=== PATIENT | female | born 1940 | race Caucasian/White ===

== ENCOUNTER → 2017-10-25 | Outpatient (CLI) | payer MEDICARE, OTHER ==
[2017-10-25 08:14] LABS: MEAN PLATELET VOLUME 8.4 FL (7.4-10.4); RED BLOOD COUNT 4.56 10^6/uL (4.35-5.85); RED CELL DISTRIBUTION WIDTH 12.9 % (10.0-14.5)
[2017-10-25 08:51] LABS: ALANINE AMINOTRANSFERASE 13 U/L (0-55); ALBUMIN 4.3 GM/DL (3.2-4.5); ALKALINE PHOSPHATASE 80 U/L (40-136); BILIRUBIN,TOTAL 0.7 MG/DL (0.1-1.0); BUN/CREATININE RATIO 19; CALCIUM 9.3 MG/DL (8.5-10.1); CARBON DIOXIDE 26 MMOL/L (21-32); CHLORIDE 103 MMOL/L (98-107); GFR ESTIMATED > 60; GLUCOSE 85 MG/DL (70-105); POTASSIUM 3.5 MMOL/L (3.6-5.0); SODIUM 139 MMOL/L (135-145); TOTAL PROTEIN 6.7 GM/DL (6.4-8.2)
--- NOTE | 2017-10-25 11:43 | Diagnostic Imaging Report ---
INDICATION: Osteoporosis. TECHNIQUE: Bone mineral analysis of the bilateral hips was performed. The lumbar spine could not be evaluated due to prior lumbar spine fusion. FINDINGS: The bone mineral density of the left femoral neck is 0.907 with a T score of -0.9. The bone mineral density of the right femoral neck is 0.884 with a T score of -1.1. IMPRESSION: Normal bone mineral density of the left femoral neck with osteopenia of the right femoral neck. Dictated by: Dictated on workstation # [id number]
== END ==
LOC: RAD 07:35
PROVIDERS: ATTEND Physician Assistant
DX: M81.0 Age-related osteoporosis without current pathological fracture (principal); E55.9 Vitamin D deficiency, unspecified; M85.88 Other specified disorders of bone density and structure, other site; R53.83 Other fatigue
CPT/HCPCS: 36415; 77080; 80053; 82306; 83970; 84443; 85027

== ENCOUNTER → 2020-06-03 | Outpatient (CLI) | payer MEDICARE, OTHER ==
[~2020-06-03] MED LIST: ACET-2650 PO; CATHETER FLUSH 10 ML SYR IV PRN; FEXO180T84 PO; HOLD METFORMIN - RECEIVED CONTRAST 20 ML VIAL IV SCH; IOHEXOL 350 MG/ML 100 ML (OMNIPAQUE 350) VIAL IV ONE; LEVO-130 PO; LOSA1TAB26 PO; MAGN400T39 PO; MELO15TA39 PO; NS 100 ML (IVPB) BAG IV ONE; ONDA-105 PO; POTA20TA15 PO; SOLI10TA7 PO; SULF1TAB35 PO
[2020-06-03 12:50] LABS: CHLORIDE 96 MMOL/L (98-107); POTASSIUM 3.5 MMOL/L (3.6-5.0); SODIUM 131 MMOL/L (135-145)
[2020-06-03 12:51] LABS: CALCIUM 9.6 MG/DL (8.5-10.1)
[2020-06-03 12:52] LABS: GLUCOSE 107 MG/DL (70-105)
[2020-06-03 12:54] LABS: CARBON DIOXIDE 24 MMOL/L (21-32)
[2020-06-03 12:56] LABS: CREATININE SERUM 0.75 MG/DL (0.60-1.30); GFR ESTIMATED > 60
[2020-06-03 12:57] LABS: BUN/CREATININE RATIO 12
--- NOTE | 2020-06-03 13:54 | Diagnostic Imaging Report ---
EXAMINATION: CT Abdomen Pelvis with and without intravenous contrast. TECHNIQUE: Precontrast acquisitions were acquired through the abdomen and pelvis. Multiple contiguous axial images were obtained through the abdomen and pelvis after the administration of intravenous contrast. All CT scans use one or more of the following dose optimizing techniques: automated exposure control, MA and/or KvP adjustment based on a patient size and exam type, or iterative reconstruction. HISTORY: Right lower quadrant and pelvic pain, hematuria. COMPARISON: None available. FINDINGS: Lung bases: Bibasilar dependent atelectasis. Solid organs: The liver is normal without focal lesion. There is no biliary ductal dilation. Gallbladder is normal. Pancreas is normal. Spleen is normal. Adrenal glands are normal. The kidneys are normal without visualized calculus or hydronephrosis. Normal symmetric nephrograms. The ureters are patent to the ureterovesicular junctions without filling defect, dilatation, or stricture. Bowel: The stomach and small bowel are normal without obstruction. There are a few scattered colonic diverticula. No findings of acute appendicitis. Peritoneum: There is no intraperitoneal free fluid or free air. No suspicious lymphadenopathy. Vasculature: Calcification of the aorta without aneurysm. Musculoskeletal: Degenerative changes of the spine without suspicious osseous lesion or compression fracture. Asymmetric soft tissue tissue nodularity within the left breast. Pelvis: The uterus is surgically absent. No adnexal mass. The urinary bladder is normal. IMPRESSION: 1. No visualized renal or ureteral calculus. No hydronephrosis. 2. No other acute abnormality in the abdomen or pelvis. 3. Asymmetric soft tissue nodularity within the visualized inferior left breast. This could represent partially visualized normal breast tissue, however recommend correlation with mammography. 4. Colonic diverticulosis without findings of diverticulitis. Dictated by: Dictated on workstation # [id number]
== END ==
LOC: RAD 12:07
PROVIDERS: ATTEND Nurse Practitioner Family
DX: K57.30 Diverticulosis of large intestine without perforation or abscess without bleeding (principal); C73 Malignant neoplasm of thyroid gland; N20.0 Calculus of kidney; M13.80 Other specified arthritis, unspecified site; I10 Essential (primary) hypertension; R31.29 Other microscopic hematuria
CPT/HCPCS: 36415; 74178; 80048

== ENCOUNTER 2020-06-07 04:11 | Inpatient (IN) | payer MEDICARE, OTHER ==
[~2020-06-07] VITALS: Ht 167.7 cm; Wt 90.1 kg
[2020-06-07] MEDS ORDERED: KETOROLAC 30 MG/ML VIAL IVP STA (04:37)
[2020-06-07] MEDS ORDERED: LACTATED RINGERS 1,000 ML IV ONE (04:45)
[2020-06-07 04:47] LABS: BASOPHILS % (AUTO) 0 % (0-10); EOSINOPHILS % (AUTO) 0 % (0-10); HEMATOCRIT 37 % (35-52); HEMOGLOBIN 12.9 g/dL (11.5-16.0); LYMPHOCYTES # (AUTO) 1.2 10^3/uL (1.0-4.0); LYMPHOCYTES % (AUTO) 11 % (12-44); MEAN CORPUSCULAR HEMOGLOBIN 30 pg (25-34); MEAN CORPUSCULAR HGB CONC 35 g/dL (32-36); MEAN CORPUSCULAR VOLUME 88 fL (80-99); MEAN PLATELET VOLUME 8.3 fL (9.0-12.2); MONOCYTES # (AUTO) 0.8 10^3/uL (0.0-1.0); MONOCYTES % (AUTO) 8 % (0-12); NEUTROPHILS # (AUTO) 8.8 10^3/uL (1.8-7.8); NEUTROPHILS % (AUTO) 80 % (42-75); PLATELET COUNT 305 10^3/uL (130-400)
[2020-06-07 04:50] LABS: BILIRUBIN,URINE NEGATIVE (NEGATIVE); CLARITY,URINE SL CLOUDY; COLOR,URINE YELLOW; GLUCOSE, URINE (UA) NEGATIVE (NEGATIVE); KETONES,URINE NEGATIVE (NEGATIVE); LEUKOCYTE ESTERASE ,URINE NEGATIVE (NEGATIVE); NITRITE,URINE NEGATIVE (NEGATIVE); PROTEIN,URINE NEGATIVE (NEGATIVE)
[2020-06-07 04:53] LABS: POTASSIUM 4.1 MMOL/L (3.6-5.0)
[2020-06-07 04:54] LABS: CALCIUM 8.9 MG/DL (8.5-10.1)
[2020-06-07 04:55] LABS: TOTAL PROTEIN 6.6 GM/DL (6.4-8.2)
--- NOTE | 2020-06-07 04:55 | ED Abdominal Pain ---
General Chief Complaint: General Problems/Pain Stated Complaint: VOMITING;LOWER R ABD PAIN;DIFFICULTY URINATING Source of Information: Patient (LIMITED HISTORIAN ABOUT HER MEDICATIONS AND PAST MEDICAL HISTORY) History of Present Illness Date Seen by Provider: Jun 07, 2020 Time Seen by Provider: 04:27 Initial Comments PT ARRIVES VIA POV FROM HOME C/O SEVERE PAIN IN RLQ/RIGHT GROIN AREA SINCE 05/28/20 PAIN IS CONSTANT AND WORSE WITH MOVEMENTS AND WALKING NO RADIATION OF PAIN C/O CONSTIPATION--HAS NOT HAD A BM IN 4 DAYS, NORMALLY HAS DIARRHEA. DENIES ANY URINARY SYMPTOMS TO ME--NO PAIN ON URINATION, NO URGENCY, NO FREQUENCY, NO SMALL AMOUNTS, NO HEMATURIA DENIES FEVER WAS SEEN AT [facility] ON 06/03/20 FOR THIS PROBLEM, AND HAD OUTPATIENT CT SCAN OF ABDOMEN AND PELVIS, WHICH WAS NEGATIVE FOR ACUTE PROCESS WAS GIVEN RX FOR HYDROCODONE--RAN OUT YESTERDAY, HAS TAKEN TYLENOL 3 DOSES--LAST DOSE WAS AT 0200 THIS AM ALSO GIVEN RX FOR ZOFRAN AND FOR KEFLEX STATES SHE HAD NAUSEA AND VOMITING WITH KEFLEX, AND IT WAS SWITCHED TO BACTRIM ON 06/05/19 AND SHE HAS NOT HAD ANY NAUSEA OR VOMITING SINCE THEN DENIES HISTORY OF SIMILAR PT HAS HAD APPENDECTOMY, X 2 AND EMERGENT HYSTERECTOMY IN 1959'S SHORTLY AFTER DELIVERY DUE TO BLEEDING AND "CODE BLUE TWICE" "BECAUSE THEY COULDN'T GET THE BLEEDING TO STOP" PCP: DR. CHIQUITA VINES, GREG SHRESTHA Allergies and Home Medications Allergies Coded Allergies: cephalexin (Verified Allergy, Mild, Vomiting, 06/07/20) Home Medications Acetaminophen 650 Mg Tablet.er, 650-1,300 MG PO Q8H PRN for PAIN-MILD (1-4), (Reported) Fexofenadine HCl 180 Mg Tablet, 180 MG PO DAILY, (Reported) Levothyroxine Sodium 100 Mcg Tablet, 100 MCG PO DAILY, (Reported) Losartan/Hydrochlorothiazide 1 Each Tablet, 1 EA PO DAILY, (Reported) Magnesium Oxide 400 Mg Tablet, 400 MG PO 1200, (Reported) Meloxicam 15 Mg Tablet, 15 MG PO DAILY, (Reported) Ondansetron HCl 4 Mg Tablet, 4 MG PO Q6 -8H PRN for NAUSEA/VOMITING-1ST LINE, (Reported) Potassium Chloride 20 Meq Tab.er.prt, 20 MEQ PO DAILY, (Reported) Solifenacin Succinate 10 Mg Tablet, 10 MG PO DAILY, (Reported) Sulfamethoxazole/Trimethoprim 1 Each Tablet, 1 EA PO BID, (Reported) FILLED 06-05-2019 #14/7 DAY SUPPLY Patient Home Medication List Home Medication List Reviewed: Yes Review of Systems Review of Systems Constitutional: no symptoms reported; No chills, No diaphoresis, No dizziness, No fever Respiratory: No Symptoms Reported Cardiovascular: No Symptoms Reported Gastrointestinal: See HPI, Abdominal Pain, Constipated Genitourinary: No Symptoms Reported Musculoskeletal: no symptoms reported; No back pain Skin: no symptoms reported Psychiatric/Neurological: No Symptoms Reported Endocrine: No Symptoms Reported Hematologic/Lymphatic: No Symptoms Reported Past Trwpvxt-Pzoshq-Hyoefz Hx Past Med/Social Hx: Reviewed and Corrections made Patient Social History Alcohol Use: Denies Use Recreational Drug Use: No Smoking Status: Never a Smoker Past Medical History Surgeries: Yes (FOOT SURGERY;LUMBAR SPINE SURGERY;EMERGENCY HYST AFTER CHILDBIRTH) Appendectomy, Hysterectomy, Orthopedic, Thyroidectomy, Tonsillectomy Respiratory: No Cardiac: Yes Hypertension Neurological: No HOSPICE LIAISON History: Hysterectomy, Menopausal Genitourinary: No Gastrointestinal: Yes Chronic Diarrhea Musculoskeletal: Yes (LUMBAR SPINE SURGERY; FOOT SURGERY) Chronic Back Pain Endocrine: Yes (THYROIDECTOMY) Hypothyroidsim HEENT: No Cancer: No Psychosocial: No Integumentary: No Blood Disorders: No Physical Exam Vital Signs Vital Signs - First Documented 06/07/20 04:25 Temp 37.0 Pulse 75 Resp 18 B/P (MAP) 202/91 (128) Capillary Refill : Height/Weight/BMI Height: '" Weight: lbs. oz. kg; BMI Method: General Appearance: WD/WN, no apparent distress, obese Respiratory: normal breath sounds, no respiratory distress, no accessory muscle use Cardiovascular: regular rate, rhythm, no murmur Gastrointestinal: normal bowel sounds, soft, no organomegaly, no pulsatile mass; No distended, No guarding, No rebound; tenderness (TENDERNESS TO RLQ AND RIGHT GROIN); No hernia, No mass Extremities: normal inspection, normal capillary refill Back: no CVA tenderness, no vertebral tenderness Neurologic/Psychiatric: copyright clerk II-XII nml as tested, no motor/sensory deficits, alert, oriented x 3, other (ANXIOUS) Skin: normal color, warm/dry; No rash Progress/Results/Core Measures Results/Orders Lab Results Laboratory Tests Test 06/07/20 04:31 06/07/20 04:35 Range/Units White Blood Count 11.0 4.3-11.0 10^3/uL Red Blood Count 4.24 3.80-5.11 10^6/uL Hemoglobin 12.9 11.5-16.0 g/dL Hematocrit 37 35-52 % Mean Corpuscular Volume 88 80-99 fL Mean Corpuscular Hemoglobin 30 25-34 pg Mean Corpuscular Hemoglobin Concent 35 32-36 g/dL Red Cell Distribution Width 12.3 10.0-14.5 % Platelet Count 305 130-400 10^3/uL Mean Platelet Volume 8.3 L 9.0-12.2 fL Immature Granulocyte % (Auto) 0 % Neutrophils (%) (Auto) 80 H 42-75 % Lymphocytes (%) (Auto) 11 L 12-44 % Monocytes (%) (Auto) 8 0-12 % Eosinophils (%) (Auto) 0 0-10 % Basophils (%) (Auto) 0 0-10 % Neutrophils # (Auto) 8.8 H 1.8-7.8 10^3/uL Lymphocytes # (Auto) 1.2 1.0-4.0 10^3/uL Monocytes # (Auto) 0.8 0.0-1.0 10^3/uL Eosinophils # (Auto) 0.0 0.0-0.3 10^3/uL Basophils # (Auto) 0.0 0.0-0.1 10^3/uL Immature Granulocyte # (Auto) 0.0 0.0-0.1 10^3/uL Sodium Level 125 *L 135-145 MMOL/L Potassium Level 4.1 3.6-5.0 MMOL/L Chloride Level 92 L 98-107 MMOL/L Carbon Dioxide Level 22 21-32 MMOL/L Anion Gap 11 5-14 MMOL/L Blood Urea Nitrogen 7 7-18 MG/DL Creatinine 0.96 0.60-1.30 MG/DL Estimat Glomerular Filtration Rate 56 BUN/Creatinine Ratio 7 Glucose Level 109 H 70-105 MG/DL Calcium Level 8.9 8.5-10.1 MG/DL Corrected Calcium 8.9 8.5-10.1 MG/DL Total Bilirubin 0.5 0.1-1.0 MG/DL Aspartate Amino Transf (AST/SGOT) 19 5-34 U/L Alanine Aminotransferase (ALT/SGPT) 17 0-55 U/L Alkaline Phosphatase 79 40-136 U/L Total Protein 6.6 6.4-8.2 GM/DL Albumin 4.0 3.2-4.5 GM/DL Amylase Level 33 25-125 U/L Lipase 27 8-78 U/L Urine Color YELLOW Urine Clarity SL CLOUDY Urine pH 7.0 5-9 Urine Specific [place] 1.010 L 1.016-1.022 Urine Protein NEGATIVE NEGATIVE Urine Glucose (UA) NEGATIVE NEGATIVE Urine Ketones NEGATIVE NEGATIVE Urine Nitrite NEGATIVE NEGATIVE Urine Bilirubin NEGATIVE NEGATIVE Urine Urobilinogen 0.2 < = 1.0 MG/DL Urine Leukocyte Esterase NEGATIVE NEGATIVE Urine RBC (Auto) NEGATIVE NEGATIVE Urine RBC NONE /HPF Urine WBC NONE /HPF Urine Squamous Epithelial Cells 0-2 /HPF Urine Crystals NONE /LPF Urine Bacteria NEGATIVE /HPF Urine Casts NONE /LPF Urine Mucus NEGATIVE /LPF Urine Culture Indicated NO My Orders Orders - SHRUTHI ADAMS DO Ed Iv/Invasive Line Start (06/07/20 04:37) Monitor-Rhythm Ecg Trace Only (06/07/20 04:37) Amylase (06/07/20 04:37) Cbc With Automated Diff (06/07/20 04:37) Comprehensive Metabolic Panel (06/07/20 04:37) Lipase (06/07/20 04:37) Ua Culture If Indicated (06/07/20 04:37) Ed Iv/Invasive Line Start (06/07/20 04:37) Lactated Ringers (Lr 1000 Ml Iv Solution (06/07/20 04:45) Ketorolac Injection (Toradol Injection) (06/07/20 04:37) Ct Abd/Pelvis Wo(Kidney Stone) (06/07/20 05:08) Abdomen, Flat & Upright/Decub (06/07/20 05:08) Ed Iv/Invasive Line Start (06/07/20 05:09) Ns Iv 1000 Ml (Sodium Chloride 0.9%) (06/07/20 05:15) Ciprofloxacin Iv 400mg/200ml (Cipro Iv S (06/07/20 06:15) Metronidazole 500mg/100ml Ivpb (Flagyl 5 (06/07/20 06:15) Medications Given in ED Vital Signs/I&O 06/07/20 04:25 Temp 37.0 Pulse 75 Resp 18 B/P (MAP) 202/91 (128) Progress Progress Note : Progress Note GIVEN IV FLUIDS AND TORADOL WITH IMPROVEMENT IN PAIN BP DOWN PAIN DECREASED. Diagnostic Imaging Comments ABDOMEN XRAYS--NON-SPECIFIC BOWEL GAS, CONSTIPATION--PENDING RADIOLOGIST REVIEW CT ABDOMEN/PELVIS--FAT STRANDING AROUND COLON, WITH DIVERTICULAR DISEASE--POSSIBLE CECAL DIVERTICULITIS, MODERATE STOOL IN RIGHT COLON, AND MILDLY IMPACTED STOOL THROUGHOUT REMAINING COLON. NO URETERAL STONES OR HYDRONEPHROSIS--PER [facility] VIA FAX AT 0601 Reviewed: Reviewed by Me Departure Communication (Admissions) [id number]--SPOKE WITH DR. MONTESINOS, HOSPITALIST, ACCEPTS PT FOR ADMIT Impression Primary Impression: RLQ abdominal pain Additional Impressions: INFLAMMATION OF CECUM Hyponatremia Disposition: ADMITTED INPATIENT Condition: Improved Admissions Decision to Admit Reason: Admit from ER (General) Decision to Admit/Date: Jun 07, 2020 Time/Decision to Admit Time: 06:00 Departure-Patient Inst. Referrals: NO,LOCAL PHYSICIAN (PCP/Family) Primary Care Physician SHRUTHI ADAMS DO Jun 07, 2020 04:55
[2020-06-07 04:57] LABS: BILIRUBIN,TOTAL 0.5 MG/DL (0.1-1.0)
[2020-06-07 04:59] LABS: CREATININE SERUM 0.96 MG/DL (0.60-1.30)
[2020-06-07 05:04] LABS: BACTERIA,URINE NEGATIVE /HPF; SQUAMOUS EPITHELIAL CELL,UR 0-2 /HPF
[2020-06-07] MEDS ORDERED: NS IV 1000 ML 1,000 ML IV SCH (05:15)
[2020-06-07] MEDS ORDERED: metroNIDAZOLE 500MG/100ML IVPB 100 ML IV ONE (06:15)
[2020-06-07] MEDS ORDERED: CIPROFLOXACIN IV 400MG/200ML 200 ML IV ONE (06:15)
--- NOTE | 2020-06-07 06:16 | Diagnostic Imaging Report ---
INDICATION: Generalized abdominal pain. COMPARISON: None. FINDINGS: KUB and upright views of abdomen demonstrate mild constipation. There is no obstruction or ileus. There is no free air. Lumbar scoliosis is present. IMPRESSION: Mild constipation. Dictated by: Dictated on workstation # [id number]
[2020-06-07] MEDS ORDERED: ONDANSETRON 4 MG/2 ML (SDV) Z0FRAN ONE (06:42)
[2020-06-07] MEDS ORDERED: ONDANSETRON 4 MG/2 ML (SDV) Z0FRAN IVP ONE (06:45)
--- NOTE | 2020-06-07 06:46 | Diagnostic Imaging Report ---
PROCEDURE: CT urinary tract, rule out kidney stone. TECHNIQUE: Multiple contiguous axial images were obtained through the abdomen and pelvis without the use of intravenous contrast. Auto Exposure Controls were utilized during the CT exam to meet ALARA standards for radiation dose reduction. INDICATION: Right flank pain x1 week. CORRELATION STUDY: 06/03/2020 FINDINGS: LOWER THORAX: Clear. LIVER: Unremarkable. GALLBLADDER: Mildly distended, otherwise unremarkable. SPLEEN: Unremarkable. PANCREAS: Unremarkable. ADRENAL GLANDS: Unremarkable. KIDNEYS: Normal configuration. No calcification or obstruction. ABDOMINAL AORTA: Mild wall calcification, nonaneurysmal. GASTROINTESTINAL TRACT: Stomach is relatively collapsed. A few mildly prominent fluid-filled loops of small bowel without transition or findings suggest obstruction. [id number] stool within the colon. Question mild fat stranding around the cecum. A few adjacent lymph nodes. No abdominal ascites and/or free air. Appendix is reported as absent. URINARY BLADDER: Unremarkable. REPRODUCTIVE: Post hysterectomy. OSSEOUS STRUCTURES: Rather mildly advanced degenerative change about the thoracic and lumbar spine. There are multilevel degenerative changes with resultant moderate severe spinal canal stenosis. Most severe at the L3-L4 level. OTHER: None. IMPRESSION: 1. Negative for nephroureterolithiasis or obstructive uropathy. 2. Colonic diverticulosis. Mild fat stranding around the cecum. Possibility of mild cecal diverticulitis would be difficult to exclude. Initial report was provided by Leon. Dictated by: Dictated on workstation # [id number]
--- NOTE | 2020-06-07 07:55 | NUR ---
TRESSA MEANS admitted to room 421-1, with an admitting diagnosis of hyponatremia, on 06/07/20 from ED via , accompanied by STAFF.TRESSA MEANS introduced to surroundings, call light, bed controls, phone, TV, temperature control, lights, meal times, smoking policy, visitor policy, side rail policy, bathrooms and showers. Patient Rights given to patient in the handbook. TRESSA MEANS verbalizes understanding that [facility] is not responsible for the loss or damage to any personal effects or valuables that are kept in the patients posession during their hospitalization. TRESSA MEANS verbalizes understanding of Interdisciplinary Patient Education. Patient and/or family were informed about the Rapid Response Team and its purpose.
[2020-06-07 08:20] VITALS: BP 116/84
[2020-06-07 08:23] VITALS: BP 116/84
--- NOTE | 2020-06-07 09:50 | History & Physical-Surgical ---
DARLENE WINTERS MED STUDENT 06/07/20 0950: History of Present Illness History of Present Illness Reason for visit/HPI Catherine is a 79 YO female that presented late lat night to the ER with the chief complaint of vomiting, RLQ pain, and difficulty urinating. She described the pain as 9/10 and non-radiating, The pain began on 05/29 and was described as constant and made worse with movement.She stated that when she would walk to the bathroom she would have to the hold up on her lower right groan area to help with the pain. She is also experiencing constipation and hasn't had a bowel movement for 4 days. Her urinary symptoms have went away since beginning on IV medications.ON 06/03 she went to [facility] urgent care with the same symptoms and had a CT of the abdomen and pelvis performed. The CT came back negative for any cute process. She was prescribed hydrocodone for the pain but ran out of it last night. She tried to take tylenol but it would touch the pain so she came to the ER. Her psat surgical history includes appendectomy, X2 , an emergent hysterectomy, and back surgery all many years ago. She is currently not on her medications because they are at home and she didn't bring them with her. Date of Admission Jun 07, 2020 at 06:33 Date Seen by a Provider: Jun 07, 2020 I consulted on this patient on 06/07/20 09:40 Attending Physician Nica Phillips MD Admitting Physician No,Local Physician Consult Allergies and Home Medications Allergies Coded Allergies: cephalexin (Verified Allergy, Mild, Vomiting, 06/07/20) Home Medications Acetaminophen 650 Mg Tablet.er, 650-1,300 MG PO Q8H PRN for PAIN-MILD (1-4), (Reported) Fexofenadine HCl 180 Mg Tablet, 180 MG PO DAILY, (Reported) Levothyroxine Sodium 100 Mcg Tablet, 100 MCG PO DAILY, (Reported) Losartan/Hydrochlorothiazide 1 Each Tablet, 1 EA PO DAILY, (Reported) Magnesium Oxide 400 Mg Tablet, 400 MG PO 1200, (Reported) Meloxicam 15 Mg Tablet, 15 MG PO DAILY, (Reported) Ondansetron HCl 4 Mg Tablet, 4 MG PO Q6 -8H PRN for NAUSEA/VOMITING-1ST LINE, (Reported) Potassium Chloride 20 Meq Tab.er.prt, 20 MEQ PO DAILY, (Reported) Solifenacin Succinate 10 Mg Tablet, 10 MG PO DAILY, (Reported) Sulfamethoxazole/Trimethoprim 1 Each Tablet, 1 EA PO BID, (Reported) FILLED 06-05-2019 #14/7 DAY SUPPLY Past Szvqcnm-Ousicd-Vjhwkf Hx Patient Social History Alcohol Use: Denies Use Recreational Drug Use: No Smoking Status: Never a Smoker Recent Foreign Travel: No Contact w/Someone Who Travel: No Recent Infectious Disease Expo: No Immunizations Up To Date Date of Influenza Vaccine: Feb 03, 2020 Surgeries History of Surgeries: Yes (FOOT SURGERY;LUMBAR SPINE SURGERY;EMERGENCY HYST AFTER CHILDBIRTH) Surgeries: Appendectomy, Hysterectomy, Orthopedic, Thyroidectomy, Tonsillectomy Respiratory History of Respiratory Disorde: No Cardiovascular History of Cardiac Disorders: Yes Cardiac Disorders: Hypertension Neurological History of Neurological Disord: No Reproductive System SEASONER History: Hysterectomy, Menopausal Genitourinary History of Genitourinary Disor: No Gastrointestinal History of Gastrointestinal Di: Yes Gastrointestinal Disorders: Chronic Diarrhea Musculoskeletal History of Musculoskeletal Dis: Yes (LUMBAR SPINE SURGERY; FOOT SURGERY) Musculoskeletal Disorders: Chronic Back Pain Endocrine History of Endocrine Disorders: Yes (THYROIDECTOMY) Endocrine Disorders: Hypothyroidsim HEENT History of HEENT Disorders: No Cancer History of Cancer: No Psychosocial History of Psychiatric Problem: No Integumentary History of Skin or Integumenta: No Blood Transfusions History of Blood Disorders: No Review of Systems Constitutional: no symptoms reported EENTM: no symptoms reported Respiratory: short of breath (having difficulty when wearing mask) Cardiovascular: no symptoms reported Gastrointestinal: RLQ, abdominal pain Genitourinary: other (UTI) Musculoskeletal: no symptoms reported Skin: no symptoms reported Psychiatric/Neurological: No Symptoms Reported Physical Exam Vital Signs Vital Signs - First Documented 06/07/20 06/07/20 04:25 07:50 Temp 37.0 Pulse 75 Resp 18 B/P (MAP) 202/91 (128) Pulse Ox 96 O2 Delivery Room Air Capillary Refill : Less Than 3 SecondsLess Than 3 Seconds Height, Weight, BMI Height: '" Weight: lbs. oz. kg; 32.03 BMI Method: General Appearance: No Apparent Distress, Mild Distress HEENT: PERRL/EOMI Neck: Full Range of Motion Respiratory: Chest Non Tender, Lungs Clear, Normal Breath Sounds, No Accessory Muscle Use, No Respiratory Distress Cardiovascular: Regular Rate, Rhythm, No Edema, No Gallop, No JVD, No Murmur, Normal Peripheral Pulses Gastrointestinal: No Pulsatile Mass, Non Tender, Soft Extremity: Normal Capillary Refill Neurologic/Psychiatric: Alert, Oriented x3, No Motor/Sensory Deficits, Normal Mood/Affect Skin: Normal Color, Warm/Dry Data Review Labs Laboratory Tests 06/07/20 04:31: White Blood Count 11.0, Red Blood Count 4.24, Hemoglobin 12.9, Hematocrit 37, Mean Corpuscular Volume 88, Mean Corpuscular Hemoglobin 30, Mean Corpuscular Hemoglobin Concent 35, Red Cell Distribution Width 12.3, Platelet Count 305, Mean Platelet Volume 8.3L, Immature Granulocyte % (Auto) 0, Neutrophils (%) (Auto) 80H, Lymphocytes (%) (Auto) 11L, Monocytes (%) (Auto) 8, Eosinophils (%) (Auto) 0, Basophils (%) (Auto) 0, Neutrophils # (Auto) 8.8H, Lymphocytes # (Auto) 1.2, Monocytes # (Auto) 0.8, Eosinophils # (Auto) 0.0, Basophils # (Auto) 0.0, Immature Granulocyte # (Auto) 0.0, Sodium Level 125*L, Potassium Level 4.1, Chloride Level 92L, Carbon Dioxide Level 22, Anion Gap 11, Blood Urea Nitrogen 7, Creatinine 0.96, Estimat Glomerular Filtration Rate 56, BUN/Creatinine Ratio 7, Glucose Level 109H, Calcium Level 8.9, Corrected Calcium 8.9, Total Bilirubin 0.5, Aspartate Amino Transf (AST/SGOT) 19, Alanine Aminotransferase (ALT/SGPT) 17, Alkaline Phosphatase 79, Total Protein 6.6, Albumin 4.0, Amylase Level 33, Lipase 27 06/07/20 04:35: Urine Color YELLOW, Urine Clarity SL CLOUDY, Urine pH 7.0, Urine Specific [place] 1.010L, Urine Protein NEGATIVE, Urine Glucose (UA) NEGATIVE, Urine Ketones NEGATIVE, Urine Nitrite NEGATIVE, Urine Bilirubin NEGATIVE, Urine Urobilinogen 0.2, Urine Leukocyte Esterase NEGATIVE, Urine RBC (Auto) NEGATIVE, Urine RBC NONE, Urine WBC NONE, Urine Squamous Epithelial Cells 0-2, Urine Crystals NONE, Urine Bacteria NEGATIVE, Urine Casts NONE, Urine Mucus NEGATIVE, Urine Culture Indicated NO Assessment/Plan Assessment/Plan Admission Charissegonsis RLQ pain Assessment/Plan Assessment: in moderate pain described as 7/10 bowels were fullt of feces upon review of CT UTI cecal diverticulitis Plan: colonoscopy in 6 weeks continue pain medication and antibiotics bed rest and time to observe for BM Clinical Quality Measures DVT/VTE Risk/Contraindication: Risk Factor Score Per Nursin RFS Level Per Nursing on Admit: 4+=Very High Supervisory-Addendum Brief Verification & Attestation Participated in pt care: history, physical Personally performed: exam, history Care discussed with: Medical Student Procedures: n/a TIMOTHY RUIZ DO 06/07/202057: History of Present Illness History of Present Illness Reason for visit/HPI CONSULT REQUESTED BY DR. PHILLIPS FOR CECAL DIVERTICULITIS Patient is a 79 year old female that presented to ER with right lower quadrant a bdominal pain. Patienthas been having pain since day after [place]. Pain is up to 9/10. No radiation of pain. Constant pain. She has been unable to have a bm for four days. Having difficulty urinating. Nothing has really seemed ot make worse or better. She had a ct scan showing cecal diverticulosis and surrounding inflammation. She has also experienced nausea and emesis. Patient never had colonoscopy. Time Seen by a Provider: 08:50 Allergies and Home Medications Allergies Coded Allergies: cephalexin (Verified Allergy, Mild, Vomiting, 06/07/20) Home Medications Acetaminophen 650 Mg Tablet.er, 650-1,300 MG PO Q8H PRN for PAIN-MILD (1-4), (Reported) Fexofenadine HCl 180 Mg Tablet, 180 MG PO DAILY, (Reported) Levothyroxine Sodium 100 Mcg Tablet, 100 MCG PO DAILY, (Reported) Losartan/Hydrochlorothiazide 1 Each Tablet, 1 EA PO DAILY, (Reported) Magnesium Oxide 400 Mg Tablet, 400 MG PO 1200, (Reported) Meloxicam 15 Mg Tablet, 15 MG PO DAILY, (Reported) Ondansetron HCl 4 Mg Tablet, 4 MG PO Q6 -8H PRN for NAUSEA/VOMITING-1ST LINE, (Reported) Potassium Chloride 20 Meq Tab.er.prt, 20 MEQ PO DAILY, (Reported) Solifenacin Succinate 10 Mg Tablet, 10 MG PO DAILY, (Reported) Sulfamethoxazole/Trimethoprim 1 Each Tablet, 1 EA PO BID, (Reported) FILLED 06-05-2019 #14/7 DAY SUPPLY Patient Home Medication List Home Medication List Reviewed: Yes Past Rofxvpu-Coqwhn-Hdlyfz Hx Reviewed Nursing Assessment Reviewed/Agree w Nursing PMH: Yes Family Medical History Significant Family History: No Pertinent Family Hx Review of Systems Constitutional: No chills, No diaphoresis EENTM: No ear pain, No vision loss Respiratory: No cough; short of breath (having difficulty when wearing mask) Gastrointestinal: RLQ, abdominal pain (RLQ), constipation, nausea, vomiting Genitourinary: incontinence, other (UTI) Musculoskeletal: No back pain, No joint pain Skin: No change in color, No change in hair/nails Psychiatric/Neurological: Denies Anxiety, Denies Depressed, Denies Emotional Problems All Other Systems Reviewed Negative Unless Noted: Yes (Negative excepted noted.) Physical Exam General Appearance: No Apparent Distress, Chronically ill; No Mild Distress HEENT: PERRL/EOMI, Normal ENT Inspection Neck: Non Tender, Supple Respiratory: Chest Non Tender, No Accessory Muscle Use, No Respiratory Distress Cardiovascular: Regular Rate, Rhythm, No JVD Gastrointestinal: Soft, Tenderness (minimal right lower quadrant) Back: No CVA Tenderness, No Vertebral Tenderness Extremity: Normal Capillary Refill, Non Tender Neurologic/Psychiatric: Alert, Oriented x3, No Motor/Sensory Deficits, Normal Mood/Affect Skin: Normal Color, Warm/Dry Lymphatic: No Adenopathy Assessment/Plan Assessment/Plan Admission Diagonsis RLQ abdominal pain cecal diverticulitis hyponatremia Admission Status: Inpatient Order (span 2 midnights) Reason for Inpatient Admission: CONSULT NOTE SEE ATTENDING H AND P Assessment/Plan RLQ abdominal pain cecal diverticulitis hyponatremia UTI NPO IV fluids Cipro/Flagyl Eventually need colonoscopy Supervisory-Addendum Brief Verification & Attestation Participated in pt care: history, MDM, physical Personally performed: exam, history, MDM, supervision of care Care discussed with: Medical Student Procedures: n/a Results interpretation: Verified all documentation Verification and Attestation of Medical Student E/M Service A medical student performed and documented this service in my presence. I reviewed and verified all information documented by the medical student and made modifications to such information, when appropriate. I personally performed the physical exam and medical decision making. Timothy Ruiz, Jun 07, 2020,10:12 DARLENE WINTERS MED STUDENT Jun 07, 2020 09:50 TIMOTHY RUIZ DO Jun 07, 2020 20:58
[2020-06-07] MEDS ORDERED: FEXO180T84 PO (10:24)
[2020-06-07] MEDS ORDERED: LEVO-130 PO (10:24)
[2020-06-07] MEDS ORDERED: SOLI10TA7 PO (10:24)
[2020-06-07] MEDS ORDERED: SULF1TAB35 PO (10:24)
[2020-06-07] MEDS ORDERED: POTA20TA15 PO (10:24)
[2020-06-07] MEDS ORDERED: ONDA-105 PO (10:24)
[2020-06-07] MEDS ORDERED: MAGN400T39 PO (10:24)
[2020-06-07] MEDS ORDERED: LOSA1TAB26 PO (10:24)
[2020-06-07] MEDS ORDERED: ACET-2650 PO (10:24)
[2020-06-07] MEDS ORDERED: MELO15TA39 PO (10:24)
--- NOTE | 2020-06-07 10:31 | NUR ---
SPOKE WITH THE PT AND WENT THRU THE EXT MED HISTORY TO COMPLETE THE MED REC PT HAS MED BOTTLES FOR SMZ/TMP, CEPHALEXIN, ONDANSETRON AND NORCO AND HAD A MED LIST FOR HER OTHER MEDICATIONS CEPHALEXIN 500MG WAS FILLED ON 06-03-2020 HOWEVER PT SAYS SHE IS ALLERGIC AND IS NOT TAKING PT HAS TAKEN ALL HER NORCO 5/325MG (FILLED 06-03-2020 #30) THEREFORE I AM NOT INCLUDING THIS ON THE MED REC OTC MEDS: GAY 180MG MAGNESIUM TYLENOL 650MG
[2020-06-07 11:44] VITALS: BP 174/79
[2020-06-07] MEDS: KETOROLAC 30 MG/ML VIAL IV SCH ×2 (11:59→19:53)
[2020-06-07] MEDS: metroNIDAZOLE 500 MG/100 ML IVPB (PRE-MIX) IV SCH ×2 (12:01→17:41)
--- NOTE | 2020-06-07 15:28 | History & Physical-Hospitalist ---
History of Present Illness HPI/Chief Complaint Catherine Boyd is a 79-year-old female with past medical history of hypertension, hypothyroidism, who presented with right lower quadrant pain. She reports severe 9 out of 10 pain without radiation. There is nothing that alleviates or aggravates the pain. She reports nausea and vomiting. She denies any fevers or chills. She denies any diarrhea. She has been constipated. She denies any blood in her stools. She has not had a colonoscopy. She reports chronic incontinence. Source: patient Exam Limitations: no limitations Date Seen 06/07/20 Time Seen by a Provider: 10:10 Attending Physician Nica Phillips MD PCP No,Local Physician Referring Physician Date of Admission Jun 07, 2020 at 06:33 Home Medications & Allergies Home Medications Reviewed patient Home Medication Reconciliation performed by pharmacy medication reconciliations cell phone repair technician and/or nursing. Patients Allergies have been reviewed. Allergies Allergies Coded Allergies cephalexin (Verified Allergy, Mild, Vomiting, 06/07/20) Past Sfahkug-Raasvp-Svqtgh Hx Past Med/Social Hx: Reviewed Nursing Past Med/Soc Hx Patient Social History Alcohol Use: Denies Use Recreational Drug Use: No Smoking Status: Never a Smoker Recent Foreign Travel: No Contact w/other who traveled: No Recent Infectious Disease Expo: No Immunizations Up To Date Date of Influenza Vaccine: Feb 03, 2020 Past Medical History Surgeries: Appendectomy, Hysterectomy, Orthopedic, Thyroidectomy, Tonsillectomy Cardiac: Hypertension Hysterectomy, Menopausal Gastrointestinal: Chronic Diarrhea Musculoskeletal: Chronic Back Pain Endocrine: Hypothyroidsim History of Blood Disorders: No Review of Systems Constitutional: no symptoms reported EENTM: no symptoms reported Respiratory: no symptoms reported Cardiovascular: no symptoms reported Gastrointestinal: abdominal pain, nausea, vomiting Genitourinary: dysuria Musculoskeletal: no symptoms reported Skin: no symptoms reported Psychiatric/Neurological: No Symptoms Reported Physical Exam Physical Exam Vital Signs Vital Signs - First Documented 06/07/20 06/07/20 04:25 07:50 Temp 37.0 Pulse 75 Resp 18 B/P (MAP) 202/91 (128) Pulse Ox 96 O2 Delivery Room Air Capillary Refill : Less Than 3 SecondsLess Than 3 Seconds Height, Weight, BMI Height: '" Weight: lbs. oz. kg; 32.03 BMI Method: General Appearance: No Apparent Distress, WD/WN HEENT: PERRL/EOMI, Pharynx Normal Neck: Normal Inspection, Supple Respiratory: Lungs Clear, Normal Breath Sounds, No Respiratory Distress Cardiovascular: Regular Rate, Rhythm, No Edema, No Murmur Gastrointestinal: Normal Bowel Sounds, Soft, Tenderness Extremity: Normal Inspection, Non Tender, No Pedal Edema Neurologic/Psychiatric: Alert, Oriented x3, No Motor/Sensory Deficits, Normal Mood/Affect Skin: Normal Color, Warm/Dry Results Results/Procedures Labs Laboratory Tests 06/07/20 04:31 Patient resulted labs reviewed. Imaging: Reviewed Imaging Report Assessment/Plan Admission Diagnosis Acute diverticulitis Admission Status: Inpatient Order (span 2 midnights) Reason for Inpatient Admission: Diverticulitis requiring IV antibiotics and pain control Assessment and Plan Acute diverticulitis of the cecum CT Abdomen with possible cecal diverticulitis Surgery consulted, appreciate assistance Started on Cipro and Flagyl IV fluids NPO Pain regimen Hyponatremia Likely hypovolemic hyponatremia IV fluids Monitor DVT Prophylaxis: Lovenox Diagnosis/Problems Diagnosis/Problems (1) Diverticulitis of cecum Status: Acute Clinical Quality Measures DVT/VTE Risk/Contraindication: Risk Factor Score Per Nursin RFS Level Per Nursing on Admit: 4+=Very High NICA PHILLIPS MD Jun 07, 2020 15:28
[2020-06-07 15:29] VITALS: BP 179/78
[2020-06-07] MEDS ORDERED: CATHETER FLUSH 10 ML SYR IV PRN (16:00)
[2020-06-07] MEDS: ENOXAPARIN 40 MG/0.4 ML (LOVENOX) SYR SC SCH (17:40)
[2020-06-07] MEDS: CIPROFLOXACIN 400 MG/D5W 200 ML (PRE-MIX) IV SCH (18:40)
[2020-06-07 19:34] VITALS: BP 152/69
[2020-06-07] MEDS: fentaNYL INJECTION 100 MCG/2 ML AMP IV PRN (19:52)
[2020-06-07 23:28] VITALS: BP 104/60
[2020-06-08] MEDS: metroNIDAZOLE 500 MG/100 ML IVPB (PRE-MIX) IV SCH ×4 (00:32→17:30)
[2020-06-08] MEDS: KETOROLAC 30 MG/ML VIAL IV SCH ×4 (01:32→19:09)
[2020-06-08 03:23] VITALS: BP 179/86
[2020-06-08 05:50] LABS: BASOPHILS % (AUTO) 0 % (0-10); EOSINOPHILS % (AUTO) 0 % (0-10); HEMATOCRIT 37 % (35-52); HEMOGLOBIN 12.5 g/dL (11.5-16.0); LYMPHOCYTES # (AUTO) 1.3 10^3/uL (1.0-4.0); LYMPHOCYTES % (AUTO) 14 % (12-44); MEAN CORPUSCULAR HEMOGLOBIN 30 pg (25-34); MEAN CORPUSCULAR HGB CONC 33 g/dL (32-36); MEAN CORPUSCULAR VOLUME 90 fL (80-99); MEAN PLATELET VOLUME 8.3 fL (9.0-12.2); MONOCYTES # (AUTO) 0.7 10^3/uL (0.0-1.0); MONOCYTES % (AUTO) 7 % (0-12); NEUTROPHILS # (AUTO) 7.3 10^3/uL (1.8-7.8); NEUTROPHILS % (AUTO) 78 % (42-75); PLATELET COUNT 296 10^3/uL (130-400); WHITE BLOOD COUNT 9.4 10^3/uL (4.3-11.0)
[2020-06-08 06:00] LABS: ALBUMIN 3.7 GM/DL (3.2-4.5)
[2020-06-08 06:01] LABS: POTASSIUM 3.8 MMOL/L (3.6-5.0)
[2020-06-08 06:02] LABS: CALCIUM 8.8 MG/DL (8.5-10.1)
[2020-06-08 06:03] LABS: TOTAL PROTEIN 6.2 GM/DL (6.4-8.2)
[2020-06-08 06:05] LABS: BILIRUBIN,TOTAL 0.6 MG/DL (0.1-1.0)
[2020-06-08 06:06] LABS: CREATININE SERUM 0.93 MG/DL (0.60-1.30)
[2020-06-08] MEDS: CIPROFLOXACIN 400 MG/D5W 200 ML (PRE-MIX) IV SCH ×2 (06:28→17:30)
--- NOTE | 2020-06-08 07:17 | Progress Note - Surgery ---
MONIQUE DE JESUS MED STUDENT 06/08/20 0717: Subjective Date Seen by a Provider: Jun 08, 2020 Time Seen by a Provider: 07:10 Subjective/Events-last exam No acute events overnight. Denies bowel movements but claims she can "feel her bowels beginning to move again". Denies nausea and reports mild pain and tenderness in RLQ. Focused Exam Respiratory: Lungs Clear, Normal Breath Sounds Cardiovascular: Regular Rate, Rhythm, No JVD, No Murmur, Normal Peripheral Pulses Capillary Refill: Less Than 3 Seconds Peripheral Pulses: 2+ Radial Pulses (R), 2+ Radial Pulses (L) Skin: normal color, warm/dry Objective Exam Vital Signs Date Time Temp Pulse Resp B/P (MAP) Pulse Ox O2 Delivery O2 Flow Rate FiO2 06/08/20 03:23 36.6 70 18 179/86 (117) 93 Room Air 06/08/20 01:00 73 06/07/20 23:28 36.8 71 20 104/60 (75) 95 Room Air 06/07/20 19:50 Room Air 06/07/20 19:34 36.2 68 18 152/69 (96) 95 Room Air 06/07/20 19:00 65 06/07/20 15:29 36.9 65 20 179/78 (111) 97 Room Air 06/07/20 12:52 64 06/07/20 11:44 36.6 64 20 174/79 (110) 98 Room Air 06/07/20 08:50 76 06/07/20 08:23 37.0 75 20 116/84 (95) 95 Room Air 06/07/20 08:21 95 Room Air 06/07/20 08:20 37.0 75 20 116/84 95 Room Air 06/07/20 07:50 37.0 83 20 119/100 96 Room Air I & O 06/08/20 07:00 Intake Total 0 ml Output Total 2000 ml Balance -2000 ml Capillary Refill : Less Than 3 SecondsLess Than 3 Seconds General Appearance: No Apparent Distress, Chronically ill; No Mild Distress HEENT: PERRL/EOMI, Normal ENT Inspection, Pale Conjunctivae (R) Neck: Non Tender, Supple; No JVD Respiratory: Chest Non Tender, Lungs Clear, Normal Breath Sounds, No Accessory Muscle Use, No Respiratory Distress Cardiovascular: Regular Rate, Rhythm, No JVD, No Murmur Peripheral Pulses: 2+ Radial Pulses (R), 2+ Radial Pulses (L) Gastrointestinal: normal bowel sounds, soft, no organomegaly, no pulsatile mass; No distended, No guarding, No rebound; tenderness (TENDERNESS TO RLQ AND RIGHT GROIN); No hernia, No mass, No other Extremity: Normal Capillary Refill, Non Tender, No Pedal Edema Neurologic/Psychiatric: Alert, Oriented x3, No Motor/Sensory Deficits, Normal Mood/Affect Skin: Normal Color, Warm/Dry Lymphatic: No Adenopathy Results Lab Laboratory Tests 06/08/20 05:36: White Blood Count 9.4, Red Blood Count 4.18, Hemoglobin 12.5, Hematocrit 37, Mean Corpuscular Volume 90, Mean Corpuscular Hemoglobin 30, Mean Corpuscular Hemoglobin Concent 33, Red Cell Distribution Width 12.8, Platelet Count 296, Mean Platelet Volume 8.3L, Immature Granulocyte % (Auto) 0, Neutrophils (%) (Aut o) 78H, Lymphocytes (%) (Auto) 14, Monocytes (%) (Auto) 7, Eosinophils (%) (Auto) 0, Basophils (%) (Auto) 0, Neutrophils # (Auto) 7.3, Lymphocytes # (Auto) 1.3, Monocytes # (Auto) 0.7, Eosinophils # (Auto) 0.0, Basophils # (Auto) 0.0, Immature Granulocyte # (Auto) 0.0, Sodium Level 131L, Potassium Level 3.8, Chloride Level 97L, Carbon Dioxide Level 24, Anion Gap 10, Blood Urea Nitrogen 8, Creatinine 0.93, Estimat Glomerular Filtration Rate 58, BUN/Creatinine Ratio 9, Glucose Level 92, Calcium Level 8.8, Corrected Calcium 9.0, Total Bilirubin 0.6, Aspartate Amino Transf (AST/SGOT) 18, Alanine Aminotransferase (ALT/SGPT) 13, Alkaline Phosphatase 74, Total Protein 6.2L, Albumin 3.7 Assessment/Plan Assessment/Plan Assessment/Plan RLQ abdominal pain - improving with meds and rest cecal diverticulitis hyponatremia - improving UTI - continue Cipro Continue NPO Continue IV fluids Cipro/Flagyl - continue Start docusate for constipation Eventually need colonoscopy Clinical Quality Measures DVT/VTE Risk/Contraindication: Risk Factor Score Per Nursin RFS Level Per Nursing on Admit: 4+=Very High TIMOTHY MENDIOLA DO 06/08/201945: Subjective Subjective/Events-last exam Still with rlq abdominal pain. Nothing making it better. Nothing making it worse. Not really passing flatus and passed small nugget of stool. NPO. No n/v fever sweats chills shortness of breath or chest pain. Objective Exam General Appearance: No Apparent Distress, Chronically ill HEENT: PERRL/EOMI, Normal ENT Inspection Neck: Non Tender, Supple Respiratory: Chest Non Tender, No Accessory Muscle Use, No Respiratory Distress Cardiovascular: Regular Rate, Rhythm, No JVD Gastrointestinal: soft; No distended, No guarding, No rebound; tenderness (TENDERNESS TO RLQ MINIMAL ON PALPATION); No hernia, No mass Extremity: Normal Capillary Refill, Non Tender Neurologic/Psychiatric: Alert, Oriented x3, No Motor/Sensory Deficits, Normal Mood/Affect Skin: Normal Color, Warm/Dry Lymphatic: No Adenopathy Assessment/Plan Assessment/Plan Assessment/Plan RLQ abdominal pain cecal diverticulitis hyponatremia - improving UTI start cleras Continue IV fluids ABX continue Eventually need colonoscopy at least 6 weeks after resolved symptoms Supervisory-Addendum Brief Verification & Attestation Participated in pt care: history, MDM, physical Personally performed: exam, history, MDM, supervision of care Care discussed with: Medical Student Procedures: n/a Results interpretation: Verified all documentation Verification and Attestation of Medical Student E/M Service A medical student performed and documented this service in my presence. I reviewed and verified all information documented by the medical student and made modifications to such information, when appropriate. I personally performed the physical exam and medical decision making. Timothy Mendiola, Jun 08, 2020,19:47 MONIQUE DE JESUS MED STUDENT Jun 08, 2020 07:17 TIMOTHY MENDIOLA DO Jun 08, 2020 19:46
[2020-06-08 07:30] VITALS: BP 154/61
[2020-06-08 12:42] VITALS: BP 181/78
--- NOTE | 2020-06-08 15:21 | Progress Note - Hospitalist ---
Subjective HPI/CC On Admission Date Seen by Provider: Jun 08, 2020 Time Seen by Provider: 09:20 Catherine Boyd is a 79-year-old female with past medical history of hypertension, hypothyroidism, who presented with right lower quadrant pain. She reports severe 9 out of 10 pain without radiation. There is nothing that alleviates or aggravates the pain. She reports nausea and vomiting. She denies any fevers or chills. She denies any diarrhea. She has been constipated. She denies any blood in her stools. She has not had a colonoscopy. She reports chronic incontinence. Subjective/Events-last exam She is feeling a little better today. Her abdominal pain is improving. She has not had any fevers. She has no other complaints or concerns. Objective Exam Vital Signs Vital Signs Date Time Temp Pulse Resp B/P (MAP) Pulse Ox O2 Delivery O2 Flow Rate FiO2 06/08/20 12:42 36.5 68 18 181/78 (112) 96 Room Air Capillary Refill : Less Than 3 SecondsLess Than 3 Seconds General Appearance: No Apparent Distress, Obese Respiratory: Lungs Clear, Normal Breath Sounds, No Respiratory Distress Cardiovascular: Regular Rate, Rhythm, No Edema, No Murmur Gastrointestinal: Normal Bowel Sounds, Soft, Tenderness Extremity: Normal Inspection, Non Tender, No Pedal Edema Neurologic/Psychiatric: Alert, Oriented x3, No Motor/Sensory Deficits, Normal Mood/Affect Skin: Normal Color, Warm/Dry Results/Procedures Lab Laboratory Tests 06/08/20 05:36 Patient resulted labs reviewed. Imaging: Reviewed Imaging Report Assessment/Plan Assessment and Plan Assess & Plan/Chief Complaint Acute diverticulitis of the cecum CT Abdomen with possible cecal diverticulitis Surgery consulted, appreciate assistance Continue Cipro and Flagyl IV fluids NPO Pain regimen Hyponatremia Likely hypovolemic hyponatremia, improving IV fluids DVT Prophylaxis: Lovenox Diagnosis/Problems Diagnosis/Problems (1) Diverticulitis of cecum Status: Acute Clinical Quality Measures DVT/VTE Risk/Contraindication: Risk Factor Score Per Nursin RFS Level Per Nursing on Admit: 4+=Very High ANKITA PHILLIPS MD Jun 08, 2020 15:20
[2020-06-08] MEDS: ENOXAPARIN 40 MG/0.4 ML (LOVENOX) SYR SC SCH (16:15)
[2020-06-08 16:38] VITALS: BP 143/81
[2020-06-08] MEDS: fentaNYL INJECTION 100 MCG/2 ML AMP IV PRN ×2 (17:29→22:21)
[2020-06-08 20:03] VITALS: BP 166/70
[2020-06-09] VITALS: BP 159/93
[2020-06-09] MEDS: metroNIDAZOLE 500 MG/100 ML IVPB (PRE-MIX) IV SCH ×4 (00:52→18:37)
[2020-06-09] MEDS: KETOROLAC 30 MG/ML VIAL IV SCH ×4 (00:52→18:36)
[2020-06-09 03:47] VITALS: BP 146/81
[2020-06-09] MEDS: fentaNYL INJECTION 100 MCG/2 ML AMP IV PRN (05:08)
[2020-06-09] MEDS: CIPROFLOXACIN 400 MG/D5W 200 ML (PRE-MIX) IV SCH ×2 (05:40→18:36)
[2020-06-09] MEDS: ONDANSETRON 4 MG/2 ML (SDV) Z0FRAN IV PRN (05:40)
[2020-06-09 06:38] LABS: CHLORIDE 98 MMOL/L (98-107); POTASSIUM 3.4 MMOL/L (3.6-5.0); SODIUM 131 MMOL/L (135-145)
[2020-06-09 06:39] LABS: CALCIUM 8.3 MG/DL (8.5-10.1)
[2020-06-09 06:40] LABS: GLUCOSE 142 MG/DL (70-105)
[2020-06-09 06:41] LABS: CARBON DIOXIDE 25 MMOL/L (21-32)
[2020-06-09 06:44] LABS: CREATININE SERUM 0.86 MG/DL (0.60-1.30); GFR ESTIMATED > 60
[2020-06-09 06:45] LABS: BUN/CREATININE RATIO 9
--- NOTE | 2020-06-09 07:15 | Progress Note - Surgery ---
MONIQUE DE JESUS MED STUDENT 06/09/20 0715: Subjective Date Seen by a Provider: Jun 09, 2020 Time Seen by a Provider: 07:00 Subjective/Events-last exam Patient reports slightly improved RLQ abd pain (7/10) compared to 8-02/11 yesterday. Patient reports multiple bowel movements since yesterday, starting out as pebble-sized, but gradually getting larger. She also reports nausea and one episode of vomiting overnight. No other acute changes reported. Objective Exam Vital Signs Date Time Temp Pulse Resp B/P (MAP) Pulse Ox O2 Delivery O2 Flow Rate FiO2 06/09/20 03:47 36.5 75 18 146/81 (102) 96 Room Air 06/09/20 01:00 74 06/09/20 00:00 36.5 72 18 159/93 (115) 93 Room Air 06/08/20 20:03 36.8 62 20 166/70 (102) 95 Room Air 06/08/20 20:00 Room Air 06/08/20 19:00 71 06/08/20 16:38 36.6 71 18 143/81 (101) 93 Room Air 06/08/20 12:42 36.5 68 18 181/78 (112) 96 Room Air 06/08/20 12:36 73 06/08/20 08:00 95 Room Air 06/08/20 07:30 36.7 63 18 154/61 (92) 95 Room Air I & O 06/09/20 07:00 Intake Total 890 ml Output Total 1450 ml Balance -560 ml Capillary Refill : Less Than 3 SecondsLess Than 3 Seconds General Appearance: No Apparent Distress, Chronically ill HEENT: PERRL/EOMI, Normal ENT Inspection Neck: Non Tender, Supple Respiratory: Chest Non Tender, Lungs Clear, Normal Breath Sounds, No Accessory Muscle Use, No Respiratory Distress Cardiovascular: Regular Rate, Rhythm, No JVD, No Murmur, Normal Peripheral Pulses Peripheral Pulses: 2+ Radial Pulses (R), 2+ Radial Pulses (L) Gastrointestinal: soft, no organomegaly, no pulsatile mass; No distended, No guarding, No rebound; tenderness (TENDERNESS TO RLQ MINIMAL ON PALPATION); No hernia, No mass Extremity: Normal Capillary Refill, Non Tender, No Pedal Edema Neurologic/Psychiatric: Alert, Oriented x3, No Motor/Sensory Deficits, Normal Mood/Affect Skin: Normal Color, Warm/Dry Lymphatic: No Adenopathy Results Lab Laboratory Tests 06/09/20 06:18: Sodium Level 131L, Potassium Level 3.4L, Chloride Level 98, Carbon Dioxide Level 25, Anion Gap 8, Blood Urea Nitrogen 8, Creatinine 0.86, Estimat Glomerular Filtration Rate > 60, BUN/Creatinine Ratio 9, Glucose Level 142H, Calcium Level 8.3L Assessment/Plan Assessment/Plan Assessment/Plan RLQ abdominal pain - slight improvement cecal diverticulitis hyponatremia - Na unchanged from yesterday (131) UTI Continue Zofran for nausea Taper off fentanyl as tolerated and continue ketorolac for pain Advance diet to full liquids; add fiber Continue IV fluid Continue Cipro for UTI Eventually need colonoscopy at least 6 weeks after resolved symptoms Clinical Quality Measures DVT/VTE Risk/Contraindication: Risk Factor Score Per Nursin RFS Level Per Nursing on Admit: 4+=Very High TIMOTHY MENDIOLA DO 06/09/202117: Subjective Subjective/Events-last exam Patient states that her right lower quadrant pain is slightly better today. Patient states that she has had some very small bowel movements. She reports having some pain medication and then soon after having nausea and emesis. She is feeling better now. She denies any fever sweats chills shortness of breath or chest pain. Objective Exam General Appearance: No Apparent Distress, Chronically ill HEENT: PERRL/EOMI, Normal ENT Inspection Neck: Non Tender, Supple Respiratory: Chest Non Tender, No Accessory Muscle Use, No Respiratory Distress Cardiovascular: Regular Rate, Rhythm, No JVD Gastrointestinal: soft; No distended, No guarding, No rebound; tenderness (TENDERNESS TO RLQ MINIMAL ON PALPATION) Extremity: Normal Capillary Refill, Non Tender Neurologic/Psychiatric: Alert, Oriented x3, No Motor/Sensory Deficits, Normal Mood/Affect Skin: Normal Color, Warm/Dry Lymphatic: No Adenopathy Assessment/Plan Assessment/Plan Assessment/Plan RLQ abdominal pain - slight improvement cecal diverticulitis hyponatremia - Na unchanged from yesterday (131) UTI Continue Zofran for nausea Pain control Clear liquids Continue IV fluid Continue Cipro for UTI Add MiraLAX 17 g p.o. twice daily as needed constipation Eventually need colonoscopy at least 6 weeks after resolved symptoms Supervisory-Addendum Brief Verification & Attestation Participated in pt care: history, MDM, physical Personally performed: exam, history, MDM, supervision of care Care discussed with: Medical Student Procedures: n/a Results interpretation: Verified all documentation Verification and Attestation of Medical Student E/M Service A medical student performed and documented this service in my presence. I reviewed and verified all information documented by the medical student and made modifications to such information, when appropriate. I personally performed the physical exam and medical decision making. Timothy Mendiola, Jun 09, 2020,21:18 MONIQUE DE JESUS MED STUDENT Jun 09, 2020 07:15 TIMOTHY MENDIOLA DO Jun 09, 2020 21:18
[2020-06-09] MEDS ORDERED: KCL 20 MEQ TAB (K-DUR) PO NR (07:45)
[2020-06-09 08:00] VITALS: BP 176/76
[2020-06-09] MEDS ORDERED: HYDROmorphone 2 MG/ML VIAL (DILAUDID) IV PRN (10:15)
[2020-06-09 11:07] VITALS: BP 169/75
[2020-06-09] MEDS ORDERED: polyethylene glycoL POWDER 17 GM (MIRALAX) PACK PO PRN ×2 (11:30→21:15)
[2020-06-09] MEDS ORDERED: DOCUSATE SODIUM 100 MG (COLACE) CAP PO PRN (11:30)
[2020-06-09] MEDS ORDERED: ONDANSETRON 4 MG/2 ML (SDV) Z0FRAN IV PRN (12:45)
[2020-06-09] MEDS ORDERED: ACETAMINOPHEN 325 MG TABLET PO PRN (12:45)
[2020-06-09] MEDS ORDERED: MELATONIN 3 MG TABLET PO PRN (12:45)
[2020-06-09] MEDS ORDERED: hydrALAZINE (APRESOLINE) 25 MG TAB PO PRN (12:45)
[2020-06-09] MEDS ORDERED: ONDANSETRON 4 MG (ZOFRAN) ORAL DISSOLVE TAB PO PRN (12:45)
--- NOTE | 2020-06-09 12:51 | Progress Note - Hospitalist ---
Subjective HPI/CC On Admission Date Seen by Provider: Jun 09, 2020 Time Seen by Provider: 09:50 Catherine Boyd is a 79-year-old female with past medical history of hypertension, hypothyroidism, who presented with right lower quadrant pain. She reports severe 9 out of 10 pain without radiation. There is nothing that alleviates or aggravates the pain. She reports nausea and vomiting. She denies any fevers or chills. She denies any diarrhea. She has been constipated. She denies any blood in her stools. She has not had a colonoscopy. She reports chronic incontinence. Subjective/Events-last exam She is still having abdominal pain this morning. She reports that it was 8 out of 10. She received a dose of IV pain medicine and then felt nauseous and had an episode of emesis. She is feeling better now. She was able to the have her clear liquids for breakfast. Objective Exam Vital Signs Vital Signs Date Time Temp Pulse Resp B/P (MAP) Pulse Ox O2 Delivery O2 Flow Rate FiO2 06/09/20 11:07 60 18 169/75 (106) 06/09/20 08:00 95 Room Air 06/09/20 08:00 35.7 Capillary Refill : Less Than 3 SecondsLess Than 3 Seconds General Appearance: No Apparent Distress, Obese Respiratory: Lungs Clear, Normal Breath Sounds, No Respiratory Distress Cardiovascular: Regular Rate, Rhythm, No Edema, No Murmur Gastrointestinal: Normal Bowel Sounds, Soft, Tenderness Extremity: Normal Inspection, Non Tender, No Pedal Edema Neurologic/Psychiatric: Alert, Oriented x3, No Motor/Sensory Deficits, Normal Mood/Affect Skin: Normal Color, Warm/Dry Results/Procedures Lab Laboratory Tests 06/09/20 06:18 Patient resulted labs reviewed. Imaging: Reviewed Imaging Report Assessment/Plan Assessment and Plan Assess & Plan/Chief Complaint Acute diverticulitis of the cecum CT Abdomen with possible cecal diverticulitis Surgery consulted, appreciate assistance Continue Cipro and Flagyl IV fluids Clear liquids Pain regimen Hyponatremia Likely hypovolemic hyponatremia, improved IV fluids Obesity Clinically significant, no acute management needs DVT Prophylaxis: Lovenox Diagnosis/Problems Diagnosis/Problems (1) Diverticulitis of cecum Status: Acute Clinical Quality Measures DVT/VTE Risk/Contraindication: Risk Factor Score Per Nursin RFS Level Per Nursing on Admit: 4+=Very High ANKITA PHILLIPS MD Jun 09, 2020 12:51
[2020-06-09] MEDS: TROSPIUM 20 MG (SANCTURA) TAB PO SCH (15:36)
[2020-06-09] MEDS: ENOXAPARIN 40 MG/0.4 ML (LOVENOX) SYR SC SCH (15:37)
[2020-06-09 16:00] VITALS: BP 131/77
[2020-06-09 20:00] VITALS: BP 172/75
[2020-06-10] VITALS (15 sets, daily range): BP systolic 84–181; BP diastolic 53–88
[2020-06-10] MEDS: KETOROLAC 30 MG/ML VIAL IV SCH ×4 (00:21→19:41)
[2020-06-10] MEDS: metroNIDAZOLE 500 MG/100 ML IVPB (PRE-MIX) IV SCH ×4 (00:21→18:17)
[2020-06-10] MEDS: ONDANSETRON 4 MG/2 ML (SDV) Z0FRAN IV PRN (04:34)
--- NOTE | 2020-06-10 04:47 | NUR ---
DR. ALBERTO NOTIFIED OF PT'S HAVING LOW BLOOD PRESSURE OF 83/58 AND HR 110'S-120'S, NAUSEA/VOMITING, AND HEARING LOUD HR IN EARS AFTER GIVING PRN DOSE 100MG PO OF HYDRALAZINE. NEW ORDERS RECEIVED TO CHANGE DOSE TO HYDRALAZINE 25MG PO Q8HR PRN FOR SBP ABOVE 180. DR. ALBERTO INSTRUCTED THIS RN TO MONITOR PT ONLY AT THIS TIME AND INSTRUCT PT TO STAY IN BED AT THIS TIME UNTIL SYMPTOMS SUBSIDE.
[2020-06-10] MEDS ORDERED: hydrALAZINE (APRESOLINE) 25 MG TAB PO PRN (05:00)
[2020-06-10] MEDS: TROSPIUM 20 MG (SANCTURA) TAB PO SCH ×2 (06:15→15:20)
[2020-06-10] MEDS: CIPROFLOXACIN 400 MG/D5W 200 ML (PRE-MIX) IV SCH ×2 (06:15→18:17)
[2020-06-10] MEDS: LEVOTHYROXINE 100 MCG (LEVOTHROID) TAB PO SCH (06:15)
--- NOTE | 2020-06-10 07:28 | Progress Note - Surgery ---
MONIQUE DE JESUS MED STUDENT 06/10/20 0728: Subjective Date Seen by a Provider: Jun 10, 2020 Time Seen by a Provider: 07:15 Subjective/Events-last exam Patient is restless and slightly agitated this morning with some resting tremors. Nurse was in the room and said that she was having a reaction to hydralazine, which was given to her for her high bp. She denies any pain but reports feeling SOB and restless. She also reports improvement in her bowel movements with softer and larger stools and more regularity. Objective Exam Vital Signs Date Time Temp Pulse Resp B/P (MAP) Pulse Ox O2 Delivery O2 Flow Rate FiO2 06/10/20 03:59 36.5 71 20 181/86 (117) 96 Room Air 06/10/20 01:36 65 06/10/20 00:00 36.4 72 18 171/88 (115) 97 Room Air 06/09/20 20:05 Room Air 06/09/20 20:00 36.6 70 18 172/75 (107) 97 Room Air 06/09/20 19:48 72 06/09/20 16:00 36.3 61 18 131/77 (95) 100 Room Air 06/09/20 12:53 59 06/09/20 11:07 60 18 169/75 (106) 06/09/20 08:00 95 Room Air 06/09/20 08:00 35.7 58 18 176/76 (109) 98 Room Air I & O 06/10/20 07:00 Intake Total 2570 ml Output Total 2250 ml Balance 320 ml Capillary Refill : Less Than 3 SecondsLess Than 3 Seconds General Appearance: No Apparent Distress, Anxious, Chronically ill, Other (restless, mildly agitated) HEENT: PERRL/EOMI, Normal ENT Inspection Neck: Non Tender, Supple Respiratory: Chest Non Tender, Lungs Clear, Normal Breath Sounds, No Accessory Muscle Use, No Respiratory Distress Cardiovascular: Regular Rate, Rhythm, No Edema, No JVD, No Murmur Peripheral Pulses: 2+ Radial Pulses (R), 2+ Radial Pulses (L) Gastrointestinal: non tender, soft; No distended, No guarding, No rebound, No tenderness (TENDERNESS TO RLQ MINIMAL ON PALPATION) Extremity: Normal Capillary Refill, Non Tender, No Pedal Edema Neurologic/Psychiatric: Alert, Oriented x3, No Motor/Sensory Deficits, Normal Mood/Affect Skin: Normal Color, Warm/Dry Lymphatic: No Adenopathy Assessment/Plan Assessment/Plan Assessment/Plan RLQ abdominal pain - improving cecal diverticulitis - likely cause of RLQ pain/complaints hyponatremia - need to recheck UTI Hypertension - very high BP overnight. Hydralazine given. BP now normotensive but patient may be experiencing unpleasant side-effects (restlessness) Continue to monitor BP and restart/continue home meds. If it goes up again may need to consider other alternatives such as a Beta meagan Continue Zofran for nausea prn Pain control Advance to full liquids Continue IV fluid Continue Cipro for UTI Add MiraLAX 17 g p.o. twice daily as needed for constipation Eventually need colonoscopy at least 6 weeks after resolved symptoms Clinical Quality Measures DVT/VTE Risk/Contraindication: Risk Factor Score Per Nursin RFS Level Per Nursing on Admit: 4+=Very High TIMOTHY MENDIOLA DO 06/10/20 1445: Subjective Subjective/Events-last exam Patient states she has been hypertensive and she is a little bit of agitated with this. Patient states she is having bowel movements better. The pain in the right lower quadrant has improved. Denies any nausea vomiting fever sweats chills shortness of breath or chest pain at this time Objective Exam General Appearance: No Apparent Distress, Anxious, Chronically ill HEENT: PERRL/EOMI, Normal ENT Inspection Neck: Non Tender, Supple Respiratory: Chest Non Tender, No Accessory Muscle Use, No Respiratory Distress Cardiovascular: Regular Rate, Rhythm, No JVD Gastrointestinal: non tender, soft; No guarding, No rebound, No tenderness Extremity: Normal Capillary Refill, Non Tender Neurologic/Psychiatric: Alert, Oriented x3, No Motor/Sensory Deficits, Normal Mood/Affect Skin: Normal Color, Warm/Dry Lymphatic: No Adenopathy Assessment/Plan Assessment/Plan Assessment/Plan RLQ abdominal pain - improving cecal diverticulitis hyponatremia UTI Hypertension Continue to monitor BP and restart/continue home meds. If it goes up again may need to consider other alternatives such as a Beta meagan Continue Zofran for nausea prn Pain control clears Continue IV fluid Continue Cipro for UTI Add MiraLAX 17 g p.o. twice daily as needed for constipation Eventually need colonoscopy at least 6 weeks after resolved symptoms Supervisory-Addendum Brief Verification & Attestation Participated in pt care: history, MDM, physical Personally performed: exam, history, MDM, supervision of care Care discussed with: Medical Student Procedures: n/a Results interpretation: Verified all documentation Verification and Attestation of Medical Student E/M Service A medical student performed and documented this service in my presence. I reviewed and verified all information documented by the medical student and made modifications to such information, when appropriate. I personally performed the physical exam and medical decision making. Timothy Mendiola, Jun 10, 2020,14:44 MONIQUE DE JESUS MED STUDENT Jun 10, 2020 07:28 TIMOTHY MENDIOLA DO Jun 10, 2020 14:45
[2020-06-10 07:56] LABS: BASOPHILS % (AUTO) 0 % (0-10); EOSINOPHILS % (AUTO) 0 % (0-10); HEMATOCRIT 38 % (35-52); HEMOGLOBIN 12.6 g/dL (11.5-16.0); LYMPHOCYTES # (AUTO) 0.7 10^3/uL (1.0-4.0); LYMPHOCYTES % (AUTO) 6 % (12-44); MEAN CORPUSCULAR HEMOGLOBIN 30 pg (25-34); MEAN CORPUSCULAR HGB CONC 33 g/dL (32-36); MEAN CORPUSCULAR VOLUME 90 fL (80-99); MEAN PLATELET VOLUME 8.2 fL (9.0-12.2); MONOCYTES # (AUTO) 0.7 10^3/uL (0.0-1.0); MONOCYTES % (AUTO) 6 % (0-12); NEUTROPHILS # (AUTO) 9.3 10^3/uL (1.8-7.8); NEUTROPHILS % (AUTO) 87 % (42-75); PLATELET COUNT 296 10^3/uL (130-400); WHITE BLOOD COUNT 10.7 10^3/uL (4.3-11.0)
[2020-06-10 08:17] LABS: BUN/CREATININE RATIO 7; CALCIUM 8.6 MG/DL (8.5-10.1); CARBON DIOXIDE 24 MMOL/L (21-32); CHLORIDE 98 MMOL/L (98-107); CREATININE SERUM 0.82 MG/DL (0.60-1.30); GFR ESTIMATED > 60; GLUCOSE 138 MG/DL (70-105); MAGNESIUM 1.8 MG/DL (1.6-2.4); POTASSIUM 3.7 MMOL/L (3.6-5.0); SODIUM 132 MMOL/L (135-145)
[2020-06-10 08:25] LABS: BAND NEUTROPHILS 1 %; BASOPHILS % (MANUAL) 0 %; EOSINOPHILS % (MANUAL) 0 %; LYMPHOCYTES % (MANUAL) 5 %; MONOCYTES % (MANUAL) 3 %; NEUTROPHILS % (MANUAL) 91 %; RBC MORPH NORMAL
[2020-06-10] MEDS: LOSARTAN 100 MG (COZAAR) TABLET PO SCH (08:35)
[2020-06-10] MEDS: MAGNESIUM 1 GM/100 ML IVPB 100 ML IV SCH (08:36)
[2020-06-10] MEDS: KCL 20 MEQ TAB (K-DUR) PO SCH (08:36)
[2020-06-10] MEDS: POTASSIUM CL 10MEQ/50ML IVPB 50 ML IV SCH (08:36)
[2020-06-10] MEDS ORDERED: HYDROCHLOROTHIAZIDE 12.5 MG (HCTZ) CAP PO SCH (09:00)
--- NOTE | 2020-06-10 14:40 | NUR ---
PRN STOOL SOFTENER AND MIRALAX HELD FOR LOOSE STOOLS
--- NOTE | 2020-06-10 14:48 | NUR ---
"RD ASSESSMENT PMHx: HTN; chronic diarrhea; hypothyroidism; PT INTERACTION: Pt was awake and pleasant during nutrition assessment. Pt states current appetite is not good. Note avg PO intake 25-50% x1d, per chart review. Pt states following a regular diet at home, and has no issues with chewing/swallowing food. Pt states some recent issues with nausea, vomiting and diarrhea. Note recent episode of emesis on 06/10, per chart review. Note last BM was 06/10, and pt currently on bowel regimen of colace PRN, and miralax PRN, per chart review. Pt states recent wt gain, but was unsure of amount/timeframe. Note unable to determine recent wt hx, per chart review. Est. kcal needs: 4591-6885 kcal | 15-20 kcal/kg Est. Pro needs: 72-90 g Pro | 0.8-1.0 g Pro/kg PES STATEMENT: Inadequate oral intake (NI-2.1) related to loss of appetite, nausea, vomiting, and diarrhea, as evidenced by pt interview, and avg PO intake 25-50% x1d. INTERVENTION: Continue with current diet order of Clear Liquid diet. Pt may benefit from nutrition supplementation if PO intake remains low. Encouraged pt to eat when able. Will continue to follow and reassess as pt needs, intake, and status change. Erica ADAMES MS RD LD [phone] cell"
[2020-06-10] MEDS: ENOXAPARIN 40 MG/0.4 ML (LOVENOX) SYR SC SCH (15:20)
--- NOTE | 2020-06-10 15:47 | Progress Note - Hospitalist ---
Subjective HPI/CC On Admission Date Seen by Provider: Jun 10, 2020 Time Seen by Provider: 09:55 Catherine Boyd is a 79-year-old female with past medical history of hypertension, hypothyroidism, who presented with right lower quadrant pain. She reports severe 9 out of 10 pain without radiation. There is nothing that alleviates or aggravates the pain. She reports nausea and vomiting. She denies any fevers or chills. She denies any diarrhea. She has been constipated. She denies any blood in her stools. She has not had a colonoscopy. She reports chronic incontinence. Subjective/Events-last exam She is feeling nauseous this morning. She had a bad reaction to a blood pressure medication overnight. She is doing a bit better now. Her abdominal pain is better. Objective Exam Vital Signs Vital Signs Date Time Temp Pulse Resp B/P (MAP) Pulse Ox O2 Delivery O2 Flow Rate FiO2 06/10/20 12:41 94 06/10/20 11:29 36.0 20 114/67 (83) 97 Room Air Capillary Refill : Less Than 3 SecondsLess Than 3 Seconds General Appearance: No Apparent Distress, WD/WN Respiratory: Lungs Clear, Normal Breath Sounds, No Respiratory Distress Cardiovascular: Regular Rate, Rhythm, No Edema, No Murmur Gastrointestinal: Normal Bowel Sounds, Non Tender, Soft Extremity: Normal Inspection, Non Tender, No Pedal Edema Neurologic/Psychiatric: Alert, Oriented x3, No Motor/Sensory Deficits, Normal Mood/Affect Skin: Normal Color, Warm/Dry Results/Procedures Lab Laboratory Tests 06/10/20 07:48 Patient resulted labs reviewed. Imaging: Reviewed Imaging Report Assessment/Plan Assessment and Plan Assess & Plan/Chief Complaint Acute diverticulitis of the cecum CT Abdomen with possible cecal diverticulitis Surgery consulted, appreciate assistance Continue Cipro and Flagyl IV fluids Clear liquids Pain regimen Hypertension Continue Losartan and HCTZ Hydralazine as needed, decreased dose Hyponatremia Likely hypovolemic hyponatremia, improving IV fluids Obesity Clinically significant, no acute management needs DVT Prophylaxis: Lovenox Diagnosis/Problems Diagnosis/Problems (1) Diverticulitis of cecum Status: Acute Clinical Quality Measures DVT/VTE Risk/Contraindication: Risk Factor Score Per Nursin RFS Level Per Nursing on Admit: 4+=Very High ANKITA PHILLIPS MD Jun 10, 2020 15:47
[2020-06-11] VITALS: BP 172/84
[2020-06-11] MEDS: KETOROLAC 30 MG/ML VIAL IV SCH ×3 (00:29→12:16)
[2020-06-11] MEDS: metroNIDAZOLE 500 MG/100 ML IVPB (PRE-MIX) IV SCH ×3 (00:30→12:15)
[2020-06-11 04:00] VITALS: BP 162/82
[2020-06-11] MEDS: TROSPIUM 20 MG (SANCTURA) TAB PO SCH (05:47)
[2020-06-11] MEDS: LEVOTHYROXINE 100 MCG (LEVOTHROID) TAB PO SCH (05:47)
[2020-06-11] MEDS: CIPROFLOXACIN 400 MG/D5W 200 ML (PRE-MIX) IV SCH (05:48)
[2020-06-11 07:13] LABS: CHLORIDE 96 MMOL/L (98-107); POTASSIUM 3.4 MMOL/L (3.6-5.0); SODIUM 127 MMOL/L (135-145)
[2020-06-11 07:14] LABS: CALCIUM 8.2 MG/DL (8.5-10.1)
[2020-06-11 07:15] LABS: GLUCOSE 121 MG/DL (70-105)
[2020-06-11 07:16] LABS: CARBON DIOXIDE 21 MMOL/L (21-32)
[2020-06-11 07:19] LABS: CREATININE SERUM 0.77 MG/DL (0.60-1.30); GFR ESTIMATED > 60
[2020-06-11 07:20] LABS: BUN/CREATININE RATIO 6
[2020-06-11] MEDS: KCL 20 MEQ TAB (K-DUR) PO SCH (07:20)
[2020-06-11] MEDS: POTASSIUM CL 10MEQ/50ML IVPB 50 ML IV SCH (07:20)
[2020-06-11 07:21] LABS: MAGNESIUM 1.7 MG/DL (1.6-2.4)
--- NOTE | 2020-06-11 07:24 | Progress Note - Surgery ---
MONIQUE DE JESUS MED STUDENT 06/11/20 0724: Subjective Date Seen by a Provider: Jun 11, 2020 Time Seen by a Provider: 07:05 Subjective/Events-last exam Patient says she feels much better today. Rates abdominal pain as only 1/10. Reports several loose bowel movements yesterday and one episode of vomiting. She denies any nausea or vomiting so far today. Overall patient is in much better spirits today. Objective Exam Vital Signs Date Time Temp Pulse Resp B/P (MAP) Pulse Ox O2 Delivery O2 Flow Rate FiO2 06/11/20 04:00 36.4 75 18 162/82 (108) 96 Room Air 06/11/20 00:00 36.0 97 18 172/84 (113) 80 Room Air 06/10/20 20:00 37.2 83 18 160/74 (102) 98 Room Air 06/10/20 19:45 Room Air 06/10/20 15:57 37.2 81 18 145/76 (99) 91 Room Air 06/10/20 12:41 94 06/10/20 11:29 36.0 90 20 114/67 (83) 97 Room Air 06/10/20 08:00 Room Air 06/10/20 08:00 36.6 96 20 125/71 (89) 99 Room Air I & O 06/11/20 07:00 Intake Total 1540 ml Output Total 750 ml Balance 790 ml Capillary Refill : Less Than 3 SecondsLess Than 3 Seconds General Appearance: No Apparent Distress, WD/WN HEENT: PERRL/EOMI, Normal ENT Inspection Neck: Non Tender, Supple Respiratory: Lungs Clear, Normal Breath Sounds, No Respiratory Distress Cardiovascular: Regular Rate, Rhythm, No Edema, No Murmur Peripheral Pulses: 2+ Radial Pulses (R), 2+ Radial Pulses (L) Gastrointestinal: normal bowel sounds, non tender, soft, no organomegaly, no pulsatile mass; No distended, No guarding, No rebound, No tenderness (TENDERNESS TO RLQ AND RIGHT GROIN), No hernia, No mass Extremity: Normal Inspection, Non Tender, No Pedal Edema Neurologic/Psychiatric: Alert, Oriented x3, No Motor/Sensory Deficits, Normal Mood/Affect Skin: Normal Color, Warm/Dry Lymphatic: No Adenopathy Results Lab Laboratory Tests 06/10/20 07:48: White Blood Count 10.7, Red Blood Count 4.19, Hemoglobin 12.6, Hematocrit 38, Mean Corpuscular Volume 90, Mean Corpuscular Hemoglobin 30, Mean Corpuscular Hemoglobin Concent 33, Red Cell Distribution Width 13.2, Platelet Count 296, Mean Platelet Volume 8.2L, Immature Granulocyte % (Auto) 1, Neutrophils (%) (Auto) 87H, Lymphocytes (%) (Auto) 6L, Monocytes (%) (Auto) 6, Eosinophils (%) (Auto) 0, Basophils (%) (Auto) 0, Neutrophils # (Auto) 9.3H, Lymphocytes # (Auto) 0.7L, Monocytes # (Auto) 0.7, Eosinophils # (Auto) 0.0, Basophils # (Auto) 0.0, Immature Granulocyte # (Auto) 0.1, Neutrophils % (Manual) 91, Lymphocytes % (Manual) 5, Monocytes % (Manual) 3, Eosinophils % (Manual) 0, Basophils % (Manual) 0, Band Neutrophils 1, Blood Morphology Comment NORMAL, Sodium Level 132L, Potassium Level 3.7, Chloride Level 98, Carbon Dioxide Level 24, Anion Gap 10, Blood Urea Nitrogen 6L, Creatinine 0.82, Estimat Glomerular Filtration Rate > 60, BUN/Creatinine Ratio 7, Glucose Level 138H, Calcium Level 8.6, Magnesium Level 1.8 06/11/20 06:35: Sodium Level 127L, Potassium Level 3.4L, Chloride Level 96L, Carbon Dioxide Level 21, Anion Gap 10, Glucose Level 121H, Calcium Level 8.2L Assessment/Plan Assessment/Plan Assessment/Plan RLQ abdominal pain - marked improvement cecal diverticulitis - improved hyponatremia - improving UTI - on antibiotics Hypertension Continue to monitor BP and continue HCTZ and losartan. Add low-dose hydralazine prn Continue Zofran for nausea prn Pain control prn Advance to full liquid diet Continue IV fluid Continue Cipro for UTI Continue MiraLAX 17 g p.o. twice daily as needed for constipation Eventually need colonoscopy at least 6 weeks after resolved symptoms Clinical Quality Measures DVT/VTE Risk/Contraindication: Risk Factor Score Per Nursin RFS Level Per Nursing on Admit: 4+=Very High TIMOTHY MENDIOLA DO 06/11/20 7440: Subjective Subjective/Events-last exam Feeling much better today. Not having hardly any abdominal pain she rates it at a 1 out of 10. She is having multiple bowel movements. She currently is not having any nausea or vomiting. She is tolerating diet. She denies any fever sweats chills shortness of breath or chest pain overall feeling better today. Objective Exam General Appearance: No Apparent Distress, WD/WN HEENT: PERRL/EOMI, Normal ENT Inspection Neck: Non Tender, Supple Respiratory: Chest Non Tender, No Accessory Muscle Use, No Respiratory Distress Cardiovascular: Regular Rate, Rhythm, No JVD Gastrointestinal: non tender, soft; No distended, No guarding, No rebound, No tenderness Extremity: Normal Inspection, Non Tender Neurologic/Psychiatric: Alert, Oriented x3, No Motor/Sensory Deficits, Normal Mood/Affect Skin: Normal Color, Warm/Dry Lymphatic: No Adenopathy Assessment/Plan Assessment/Plan Assessment/Plan RLQ abdominal pain - marked improvement cecal diverticulitis - improved hyponatremia - improving UTI - on antibiotics Hypertension Continue Zofran for nausea prn Pain control prn Advance diet as tolerates bowel regimen Eventually need colonoscopy at least 6 weeks after resolved symptoms Supervisory-Addendum Brief Verification & Attestation Participated in pt care: history, MDM, physical Personally performed: exam, history, MDM, supervision of care Care discussed with: Medical Student Procedures: n/a Results interpretation: Verified all documentation Verification and Attestation of Medical Student E/M Service A medical student performed and documented this service in my presence. I reviewed and verified all information documented by the medical student and made modifications to such information, when appropriate. I personally performed the physical exam and medical decision making. Timothy Mendiola, Jun 11, 2020,09:50 MONIQUE DE JESUS MED STUDENT Jun 11, 2020 07:24 TIMOTHY MENDIOLA DO Jun 11, 2020 21:50
[2020-06-11] MEDS: MAGNESIUM 1 GM/100 ML IVPB 100 ML IV SCH ×3 (07:25→08:58)
[2020-06-11] MEDS ORDERED: KCL 20 MEQ TAB (K-DUR) PO NR (07:30)
[2020-06-11 08:00] VITALS: BP 169/81
[2020-06-11] MEDS: LOSARTAN 100 MG (COZAAR) TABLET PO SCH (08:57)
[2020-06-11] MEDS ORDERED: amLODIPine 5 MG (NORVASC) TAB PO SCH (09:00)
[2020-06-11 12:00] VITALS: BP 150/80
[2020-06-11] MEDS ORDERED: LOSA100T57 PO (13:58)
[2020-06-11] MEDS ORDERED: AMLO-250 PO (13:58)
[2020-06-11] MEDS ORDERED: METR500T PO (14:01)
[2020-06-11] MEDS ORDERED: CIPR-225 PO (14:01)
--- NOTE | 2020-06-11 14:07 | Discharge Summary ---
Discharge Summary Hospital Course Was the Problem List Reviewed?: Yes Problems/Dx: (1) Diverticulitis of cecum Status: Acute Hospital Course Date of Admission: Jun 07, 2020 at 06:33 Admission Diagnosis : Acute diverticulitis of the cecum Family Physician/Provider: AdelaLocal Physician Date of Discharge: 06/11/20 Discharge Diagnosis: Acute diverticulitis of the cecum Hospital Course: Catherine Boyd is a 79-year-old female who was admitted with acute diverticulitis of the cecum. She was started on IV antibiotics and a pain regimen. Gen. surgery was consulted and assisted with her care. Her pain improved. She was transitioned to oral antibiotics and will complete a one-week course as an outpatient. Her course was complicated by hyponatremia which was thought to be due to hypovolemia and hydrochlorothiazide use. Her hydrochlorothiazide was discontinued. She was started on amlodipine. She should follow-up with her primary care physician in about a week. She should follow-up with Dr. Mendiola in about 4 weeks. She will need a colonoscopy as an outpatient. She was discharged home in stable condition. Labs and Pending Lab Test: Laboratory Tests 06/11/20 06:35: Sodium Level 127L, Potassium Level 3.4L, Chloride Level 96L, Carbon Dioxide Level 21, Anion Gap 10, Blood Urea Nitrogen 5L, Creatinine 0.77, Estimat Glomerular Filtration Rate > 60, BUN/Creatinine Ratio 6, Glucose Level 121H, Calcium Level 8.2L, Magnesium Level 1.7 Home Meds Active Flagyl (Metronidazole) 500 Mg Tablet 500 Mg PO Q8H 7 Days Cipro (Ciprofloxacin HCl) 500 Mg Tablet 500 Mg PO BID 7 Days Losartan Potassium 100 Mg Tablet 100 Mg PO DAILY 30 Days Amlodipine Besylate 5 Mg Tablet 5 Mg PO DAILY 30 Days Reported Tylenol Arthritis (Acetaminophen) 650 Mg Tablet.er 650-1,300 Mg PO Q8H PRN Magnesium (Magnesium Oxide) 400 Mg Tablet 400 Mg PO 1200 Maria Dolores Allergy (Fexofenadine HCl) 180 Mg Tablet 180 Mg PO DAILY Meloxicam 15 Mg Tablet 15 Mg PO DAILY Solifenacin Succinate 10 Mg Tablet 10 Mg PO DAILY Euthyrox (Levothyroxine Sodium) 100 Mcg Tablet 100 Mcg PO DAILY Losartan-Hctz 100-12.5 mg Tab (Losartan/Hydrochlorothiazide) 1 Each Tablet 1 Ea PO DAILY Potassium Chloride 20 Meq Tab.er.prt 20 Meq PO DAILY Ondansetron HCl 4 Mg Tablet 4 Mg PO Q6 -8H PRN Bactrim Ds Tablet (Sulfamethoxazole/Trimethoprim) 1 Each Tablet 1 Ea PO BID FILLED 06-05-2019 #14/ DAY SUPPLY Assessment/Pt Instructions Take medications as prescribed. Complete her course of antibiotics even if you're feeling better. Stop hydrochlorothiazide. Begin taking amlodipine. Follow-up with your primary care physician in about a week. Follow-up with Dr. Mendiola in 4 weeks. He will need a colonoscopy. Return with worsening abdominal pain or if you feel like you're getting worse. Discharge Planning: <30 minutes discharge planning Discharge Instructions Discharge Diet: No Restrictions Activity as Tolerated: Yes Discharge Physical Examination Vital Signs Vital Signs Date Time Temp Pulse Resp B/P (MAP) Pulse Ox O2 Delivery O2 Flow Rate FiO2 06/11/20 12:00 36.1 70 20 150/80 (103) 95 Room Air General Appearance: No Apparent Distress, Obese Respiratory: Lungs Clear, Normal Breath Sounds, No Respiratory Distress Cardiovascular: Regular Rate, Rhythm, No Edema, No Murmur Gastrointestinal: Normal Bowel Sounds, Non Tender, Soft Extremity: Normal Inspection, Non Tender, No Pedal Edema Skin: Normal Color, Warm/Dry Neurologic/Psychiatric: Alert, Oriented x3, No Motor/Sensory Deficits, Normal Mood/Affect Allergies: Coded Allergies: cephalexin (Verified Allergy, Mild, Vomiting, 06/07/20) Copy Copies To 1: TIMOTHY MENDIOLA DO Discharge Summary Date of Admission Jun 07, 2020 at 06:33 Date of Discharge Discharge Date: Jun 11, 2020 Discharge Time: 14:05 Admission Diagnosis Acute diverticulitis Discharge Diagnosis Acute diverticulitis of the cecum (1) Diverticulitis of cecum Status: Acute Clinical Quality Measures DVT/VTE Risk/Contraindication: Risk Factor Score Per Nursin RFS Level Per Nursing on Admit: 4+=Very High ANKITA PHILLIPS MD Jun 11, 2020 14:07
--- NOTE | 2020-06-11 14:48 | NUR ---
Reviewed discharge orders, medications, and follow up appts. reviewed new medications and when she should take them as already had them today. Had no questions. Daughter here to pick patient up.
== END 2020-06-11 14:45 | disposition home or self-care (01) | DRG 392 ==
LOC: EDUNIT# 04:11 → ER 04:15 → 4TH 06:33
PROVIDERS: ADMIT Family Medicine; ATTEND Internal Medicine
DX: K57.32 Diverticulitis of large intestine without perforation or abscess without bleeding (principal); N39.0 Urinary tract infection, site not specified; E87.1 Hypo-osmolality and hyponatremia; E86.1 Hypovolemia; K59.00 Constipation, unspecified; I10 Essential (primary) hypertension; R32 Unspecified urinary incontinence; E66.9 Obesity, unspecified; Z68.32 Body mass index [BMI] 32.0-32.9, adult; E89.0 Postprocedural hypothyroidism; M54.9 Dorsalgia, unspecified; Z88.1 Allergy status to other antibiotic agents; Z90.710 Acquired absence of both cervix and uterus; Z90.49 Acquired absence of other specified parts of digestive tract; T50.2X5A Adverse effect of carbonic-anhydrase inhibitors, benzothiadiazides and other diuretics, initial encounter
CPT/HCPCS: 36415; 74019; 74176; 80048; 80053; 81000; 82150; 83690; 83735; 85007; 85025; 85027; 93041

== ENCOUNTER → 2021-05-02 | Outpatient (CLI) | payer MEDICARE, OTHER ==
[~2021-05-02] MED LIST changes: +AMLO-250 PO; -CATHETER FLUSH 10 ML SYR IV PRN; +CIPR-225 PO; -HOLD METFORMIN - RECEIVED CONTRAST 20 ML VIAL IV SCH; -IOHEXOL 350 MG/ML 100 ML (OMNIPAQUE 350) VIAL IV ONE; +LOSA100T57 PO; +METR500T PO; -NS 100 ML (IVPB) BAG IV ONE; +POTA-179 PO; -POTA20TA15 PO; -SULF1TAB35 PO; +SULF1TAB38 PO
--- NOTE | 2021-05-02 08:26 | Diagnostic Imaging Report ---
Right shoulder at 7:56. Indication: Fell, shoulder pain 3 views were obtained. There are no prior studies available for comparison. There is no fracture, dislocation or acute bony abnormality evident. There is moderate degenerative disease of the glenohumeral and acromioclavicular joints. Furthermore the space between the acromion and the humeral head is narrowed and there may be an injury to the rotator cuff. The soft tissues are unremarkable. Impression: 1. There is no evidence for an acute bony abnormality. 2. There are degenerative changes involving the shoulder joint and there is a question of an injury to the rotator cuff. If further evaluation of the rotator cuff is desired, then MRI would be recommended. Dictated by: Dictated on workstation # [id number]
--- NOTE | 2021-05-02 08:27 | Diagnostic Imaging Report ---
INDICATION: Pain after fall. 3 views were obtained FINDINGS: The alignment is normal. There are mild degenerative changes. No fracture or dislocation. No joint effusion. Soft tissues are unremarkable. IMPRESSION: Mild degenerative changes, otherwise unremarkable. Dictated by: Dictated on workstation # [id number]
--- NOTE | 2021-05-02 08:30 | Diagnostic Imaging Report ---
Right humerus at 8:00. Indication: Fell, arm pain. AP and lateral views were obtained. There are no prior studies available for comparison. There is no fracture, dislocation or acute bony abnormality evident. There is a 1 cm calcific density in the soft tissues adjacent to the medial epicondyle of the distal humerus. I suspect that this is a sequela of prior trauma as opposed to an acute avulsion fracture. Even so, clinical followup is recommended. There is also slight irregularity of the lateral cortex of the lateral epicondyle of the distal humerus. This too is most likely posttraumatic in nature. The posterior fat-pad of the elbow joint is not elevated on the lateral view. The soft tissues are unremarkable. Impression: 1. The calcific density in the soft tissues adjacent to the medial epicondyles and the irregularity of the lateral cortex of the lateral epicondyle are more likely due to prior trauma than to an acute abnormality. Even so, clinical followup is recommended. 2. There is no acute bony abnormality appreciated otherwise. Dictated by: Dictated on workstation # [id number]
--- NOTE | 2021-05-02 08:32 | Diagnostic Imaging Report ---
Right hip at 8:07. Indication: Fell, hip pain AP and lateral views were obtained. There is no fracture, dislocation or acute bony abnormality evident. There is a well-circumscribed 9 mm calcific density along the superior margin of the greater trochanter. This finding was also present on the prior abdomen exam of 01/05/2021 and has not changed. Consequently suspect this is due to previous trauma and/or degenerative disease. There is moderate degenerative disease of the hip joint itself. The degenerative changes seem similar to the prior exam. The soft tissues are unremarkable. Impression: There is no evidence for an acute bony abnormality. Dictated by: Dictated on workstation # [id number]
== END ==
LOC: RAD 07:32
PROVIDERS: ATTEND Nurse Practitioner Family
DX: M19.011 Primary osteoarthritis, right shoulder (principal); M19.021 Primary osteoarthritis, right elbow; W19.XXXA Unspecified fall, initial encounter
CPT/HCPCS: 73030; 73060; 73080; 73502

== ENCOUNTER → 2021-05-19 | Outpatient (CLI) | payer MEDICARE, OTHER ==
[~2021-05-19] VITALS: Ht 165.1 cm; Wt 85.5 kg
[~2021-05-19] MED LIST changes: +GADOTERATE 0.5 MMOL/ML (CLARISCAN) 15 ML VIAL IV ONE; +GADOTERATE 0.5 MMOL/ML (CLARISCAN) 5 ML VIAL IV ONE; +IOHEXOL 300 MG/ML 50 ML (OMNIPAQUE 300) VIAL IV ONE
[2021-05-19] MEDS: CATHETER FLUSH 10 ML SYR IV PRN ×2 (13:55→13:58)
--- NOTE | 2021-05-19 14:41 | Diagnostic Imaging Report ---
INDICATION: Fall and right shoulder pain and injury. Patient was brought to the procedure room and placed on table in the supine position. The right shoulder was prepped and draped in the usual sterile fashion. A small amount of 1% lidocaine was utilized for local anesthesia. A 20-gauge needle was advanced into the right shoulder and placed with its tip at the rotator interval. Approximately 15 mL solution of iodinated contrast, normal saline, and gadolinium was injected under fluoroscopic observation. The needle was removed, and hemostasis was obtained. 11 seconds of fluoroscopic time was utilized. Patient tolerated the procedure well and was sent to MRI in satisfactory condition. IMPRESSION: Successful right shoulder injection of gadolinium contrast solution using fluoroscopy. Dictated by: Dictated on workstation # [id number]
--- NOTE | 2021-05-19 14:57 | Diagnostic Imaging Report ---
MRI RT UPPER EXT JOINT WITH Technique: Multiplanar, multisequence MR imaging of the right shoulder was performed without contrast. Comparison: None available. Indication: Right shoulder pain Findings: Rotator cuff: There are complete tears of both the supraspinatus and infraspinatus with the proximal stump retracted central to the glenohumeral joint. Severe fatty infiltration of both the supraspinatus and infraspinatus muscle bundles is present. Subscapularis has partial-thickness interstitial tearing and delamination. Teres minor remains intact. Glenoid labrum: Degenerative truncation is present throughout the entire glenoid labrum. No para-labral cyst. Long head of biceps: The intracapsular segment long head of biceps has a frayed apparent and is likely partially torn with tendinopathy. Its origin does remain intact. Bones and cartilage: High riding humeral head due to chronic rotator cuff tear. Broad region of full-thickness articular cartilage loss are present in the anterior inferior aspect of the glenoid. Mild osteoarthritis of the AC joint. Soft tissues: Small glenohumeral joint effusion. No MRI findings to suggest adhesive capsulitis. T2 hyperintense signal within the subacromial subdeltoid space is likely due to combination of bursitis and fluid due to full-thickness rotator cuff tear. IMPRESSION: 1. Chronic massive rotator cuff tear includes complete tears of both the supraspinatus and infraspinatus with the proximal shaft retracted central to the glenohumeral joint and there is severe muscle belly atrophy. Partial-thickness subscapularis is also present. 2. Tendinopathy and partial-thickness tear of the long head of biceps. 3. 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 Dictated by: Dictated on workstation # [id number]
== END ==
LOC: RAD 13:30
PROVIDERS: ATTEND Nurse Practitioner Family
DX: M75.121 Complete rotator cuff tear or rupture of right shoulder, not specified as traumatic (principal); M19.011 Primary osteoarthritis, right shoulder; W19.XXXA Unspecified fall, initial encounter
CPT/HCPCS: 23350; 73040; 73222